=== PATIENT | female | born 1940 ===

== ENCOUNTER → 2023-03-05 10:59 | Outpatient (BNVA) | payer OTHER, SELFPAY | PROVIDERS: PCP Internal Medicine; Visit Provider Psychiatry & Neurology Neurology | DX: F03.90 Unspecified dementia, unspecified severity, without behavioral disturbance, psychotic disturbance, mood disturbance, and anxiety (principal); F05 Delirium due to known physiological condition; R44.3 Hallucinations, unspecified | CPT/HCPCS: 99202 ==

== ENCOUNTER 2023-06-03 10:31 | Outpatient (REF) | payer OTHER, SELFPAY | END 2023-06-03 10:32 | disposition home or self-care (01) | LOC: HO.MRI 10:31 | PROVIDERS: PCP Internal Medicine; Visit Provider Psychiatry & Neurology Neurology | DX: F03.90 Unspecified dementia, unspecified severity, without behavioral disturbance, psychotic disturbance, mood disturbance, and anxiety (principal) | CPT/HCPCS: 70551 ==

== ENCOUNTER 2023-07-08 11:05 | Outpatient (AMB) | payer OTHER, SELFPAY ==
--- NOTE | 2023-07-08 11:13 | MHC.OFFVIS ---
Intake Vital Signs 07/08/23 11:23 Weight 111 lb BP 110/72 Blood Pressure Location Lt brachial Position Sitting Pulse 78 Pulse Source Pulse Oximeter Pulse Oximetry (%) 99 Oxygen Delivery Method Room Air Intake Visit Reasons: 4m follow up Dementia/Confirmed Intake Note: F/U Dementia Print And Pattern Designer Required: Yes Print And Pattern Designer Name: Chapin [id number] Allergies No Known Allergies Allergy (Verified 07/08/23 11:15) HPI HPI Comments History of Present Illness Details 83 y/o female comes for follow up of memory issues. Chapin Ayala ID #[id number] utilized. Pt had a brain MRI done, but it was limited, incomplete study due to claustrophobia. 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 The midline structures are grossly normal. [id number] chronic white matter microangiopathic changes noted with diffuse parenchymal volume loss and concordant ex vacuo dilatation of the ventricles. No mass effect or midline shift is seen. No acute infarct evident. No findings suspicious for hydrocephalus. Mild ethmoid sinus mucosal thickening noted. Pt's daughter reports that patient frequently misplaces things, losses things, forgets what she has eaten, forgets medications etc. She has trouble using microwave, phone etc. Pt is on donepezil 10 mg qHS and memantine 10 mg BID. She stopped ramelteon, it did not help her sleep better, now she takes mirtazapine. It seems helps better. Pt's daughter states that seroquel 25 mg 1/2 tab at 4pm and 1/2 tab at 7 pm reduced hallucination and irritability. [facility] Medical History (Updated 03/05/23 @ 11:57 by Melodie Matt MD) Hallucination Sundowning Dementia Lung nodule Osteoporosis Depression CKD (chronic kidney disease) Diabetic neuropathy Hyperlipemia Diabetes HTN (hypertension) Surgical History Hx of appendectomy Hx of hernia repair Hx of cataract removal with insertion of prosthetic lens Social History (Updated 07/08/23 @ 11:23 by Kym Edmond CMA) Alcohol intake: never Patient Tobacco Use Status: Former Tobacco user Review of Systems Const All systems reviewed & are unremarkable except as noted in HPI and below Neuro Reports confusion Psych Reports confusion Physical Exam Vital Signs: Last Vital Signs Pulse 78 07/08/23 11:23 BP 110/72 07/08/23 11:23 Pulse Ox 99 07/08/23 11:23 Oxygen Delivery Method Room Air 07/08/23 11:23 Const General: cooperative, comfortable, no acute distress and confusion Nutritional Appearance: average body habitus Orientation/consciousness: confusion Eyes Pupils: Equal, round and reactive pupils present Neuro General: tone normal, moves all extremities, no focal motor deficits and confusion Cranial nerves: Yes Facial sensation intact/muscles of mastication intact, Yes Equal, round and reactive pupils present, Yes Bilaterally intact EOM present, Yes Nystagmus not present, Yes Normal facial strength present, Yes Midline tongue present and Yes Symmetric palate elevation present Cognition (Neuro): abnormal cognition Gait exam (Neuro): Antalgic gait present Motor exam (neuro): 5/5 motor strength present throughout and Normal motor muscle tone present throughout Deep tendon reflexes (DTR's): Right triceps reflex intensity grade: 1+, Left triceps reflex intensity grade: 1+, Rt Biceps (C5, C6): 1+, Left biceps reflex intensity grade: 1+, Right patellar reflex intensity grade: 1+ and Left patellar reflex intensity grade: 1+ Coordination: [id number] test normal Assessment & Plan Assessment & Plan (1) Dementia: Comment: Alzheimers vs mixed MMSE limited due to language issues, hearing impairment and her education level ( does not know how to read or write) Code(s): F03.90 - Unspecified dementia, unspecified severity, without behavioral disturbance, psychotic disturbance, mood disturbance, and anxiety (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 Continue to take quetiapine 25 mg 1/2 tab at 4pm and 1/2 tab at 7 pm to manage hallucination and irritability. Coding Level of Care Code Est Pt Level 3 (21527) Diagnoses Dementia F03.90 Sundowning F05 Hallucination R44.3
[2023-07-08 11:23] VITALS: BP 110/72; PULSE 78; O2SAT 99
== END 2023-07-08 11:46 | disposition home or self-care (01) ==
PROVIDERS: PCP Internal Medicine; Visit Provider Nurse Practitioner Family
DX: F03.90 Unspecified dementia, unspecified severity, without behavioral disturbance, psychotic disturbance, mood disturbance, and anxiety (principal); F05 Delirium due to known physiological condition; R44.3 Hallucinations, unspecified
CPT/HCPCS: 99213

== ENCOUNTER → 2023-07-08 11:05 | Outpatient (BNVA) | payer OTHER, SELFPAY | PROVIDERS: PCP Internal Medicine; Visit Provider Nurse Practitioner Family | DX: F03.90 Unspecified dementia, unspecified severity, without behavioral disturbance, psychotic disturbance, mood disturbance, and anxiety (principal); F05 Delirium due to known physiological condition; R44.3 Hallucinations, unspecified | CPT/HCPCS: 99212 ==

== ENCOUNTER 2024-05-19 10:48 | Outpatient (AMB) | payer OTHER, SELFPAY ==
--- NOTE | 2024-05-19 11:22 | A.OFFVIS_ITS ---
Vital Signs 05/19/24 11:26 Height 4 ft 8 in Weight 112 lb BMI 25.1 BP 110/70 Blood Pressure Location Rt brachial Position Sitting Intake Visit Reasons: 6m f/u Dementia - Conf Intake Note: Patient here for follow up Allergies No Known Allergies Allergy (Verified 05/19/24 11:26) Medication List - Last Reconciled 05/19/24 by OCTAVIO Louis acetaminophen 500 mg PO Q6H PRN aspirin 81 mg PO DAILY atorvastatin 10 mg PO DAILY blood sugar diagnostic (FreeStyle Lite Strips) As directed cholecalciferol (vitamin D3) 50 mcg PO DAILY donepezil 10 mg PO BEDTIME 30 days dulaglutide (Trulicity) 0.75 mg subcut QWEEK insulin aspart U-100 (Novolog U-100 Insulin aspart) subcut lisinopril-hydrochlorothiazide 20-12.5 mg 1 tab PO DAILY memantine 10 mg PO BID mirtazapine 7.5 mg PO BEDTIME quetiapine 1/2 tab at 4 pm 1/2 tab at 7 pm orally bedtime; HPI Comments Details: 84-yr-old female presents for f/u visit. Pt denies any significant interval medical changes. Pt herself reports she is doing ok, her primary concern is her knee pain. She states she may forget things. She states she is eating, drinking, and sleeping well. She needs help with her ADLs and IADLs. Her children help her, her dtr DAYANA is her GUSSET STITCHER also. Pt does not try to leave home w/o her children. Her dtr notes that pt does have frequent hallucinations. Talks to the people in the TV and they talk back to her. Sometimes the person in the TV is bothersome to her- she feels they take pictures of her w/o her consent. She also believes she is in a relationship w/ a very famous musician- though is not. [facility] Medical History (Updated 03/05/23 @ 11:57 by Melodie Matt MD) Hallucination Sundowning Dementia Lung nodule Osteoporosis Depression CKD (chronic kidney disease) Diabetic neuropathy Hyperlipemia Diabetes HTN (hypertension) Surgical History Hx of appendectomy Hx of hernia repair Hx of cataract removal with insertion of prosthetic lens Social History (Reviewed 05/19/24 @ 11:26 by CHRISTIANO Quiles Alcohol intake: never Patient Tobacco Use Status: Former Tobacco user Physical Exam Vital Signs: Last Vital Signs BP 110/70 05/19/24 11:26 BMI result Body Mass Index 25.1 Const General: cooperative and no acute distress Orientation/consciousness: oriented to person Resp Effort & Inspection: normal respiratory effort and able to speak in complete sentences Neuro Other: Pt is able to state correctly: Today is Wednesday and we are in hospital clinic. She had 6 children and 1 has passed. Pt is unable to state month, year, floor we are on, city- states this is [place]. She cannot tell me where she lives or her phone number. General: oriented to person Cranial nerves: Yes CN's II-XII intact bilaterally Gait exam (Neuro): Assistive device used (cane) Psych Appearance: grossly normal Speech and movement: Normal speech and movement present Affect: normal affect Attitude: cooperative Assessment & Plan Assessment & Plan (1) Dementia: Comment: Alzheimers vs mixed MMSE limited due to language issues, hearing impairment and her education level ( does not know how to read or write) Code(s): F03.90 - Unspecified dementia, unspecified severity, without behavioral disturbance, psychotic disturbance, mood disturbance, and anxiety Category: Medical (2) Hallucination: Code(s): R44.3 - Hallucinations, unspecified Category: Medical Plan Continue Memantine 10mg bid Continue Donepazil 10mg qd Increase quetiapine from 12.5mg bid to 12.5mg tid and extra 12.5mg per day prn hallucinations. Reviewed possible side effects of quetiapine tx. Continue supportive care- pt may need increased supervision if confusion worse ns. Encouraged pt to engage in regular physical, cognitive, and socially engaging activities. Advised to notify us w/ any worsening hallucinations, behaviors, or s/s infection. Pt to follow-up in 6 months or sooner prn. Medications: Changed From quetiapine 1/2 tab at 4 pm 1/2 tab at 7 pm orally bedtime; 30 tabs 3RF To quetiapine may use 1 extra 1/2 tab per day prn hallucinations. 12.5 mg (1/2 x 25 mg) PO TID 30 days 60 tabs 3RF Coding Level of Care Code Est Pt Level 4 (84470) Diagnoses Dementia F03.90 Hallucination R44.3
[2024-05-19 11:26] VITALS: BP 110/70; BMI 25.1
== END 2024-05-19 12:31 | disposition home or self-care (01) ==
PROVIDERS: PCP Internal Medicine; Visit Provider Nurse Practitioner Family
DX: F03.90 Unspecified dementia, unspecified severity, without behavioral disturbance, psychotic disturbance, mood disturbance, and anxiety (principal); R44.3 Hallucinations, unspecified
CPT/HCPCS: 99214

== ENCOUNTER → 2024-05-19 10:48 | Outpatient (BNVA) | payer OTHER, SELFPAY | PROVIDERS: PCP Internal Medicine; Visit Provider Nurse Practitioner Family | DX: F03.90 Unspecified dementia, unspecified severity, without behavioral disturbance, psychotic disturbance, mood disturbance, and anxiety (principal); R44.3 Hallucinations, unspecified | CPT/HCPCS: 99212 ==

== ENCOUNTER 2024-11-30 11:16 | Outpatient (REF) | payer OTHER, SELFPAY ==
--- OUTSIDE RECORDS SUMMARY | 2024-11-30 13:58 | XMS_ITS | Clinical Summary ---
Author Organization [address] [place] [address] [address] Address [address] [place] [phone] Phone Care Team Providers Care Munitions Handler Supervisor Name Role Phone Yamileth Taveras MD Primary Care Prov ider Allergies [...] Care Team Description 10/31/2024 Telephone Endocrinology - [address] [place] [place] [phone] Lyn Gallo MA Prolia Injection 10/25/2024 12:56 PM EST - 10/25/2024 5:39 PM EST Emergency [facility] [address] [place] [phone] Discharge Disposition: Home or Self Care 10/03/2024 Telephone Endocrinology - [address] [place], [place] [phone] Cristal Tan MA 10/02/2024 10:15 AM EST Office Visit Orthopedic Surgery - [place] [address] [facility] [address] [place] [phone] Dyer, Iwona M, PA Pain in both wrists (Primary Dx); Ganglion of right wrist; Ganglion of left wrist 09/01/2024 Telephone [facility] [place] [address] [place] [phone] Cristal Tan MA from Last [...] History Surgery Date Site/Laterality Comments APPENDECTOMY PROCEDURE: [place] APPENDECTOMY HERNIA REPAIR PROCEDURE: HISTORICAL HERNIA REPAIR/ING [...] ty pe II controlled with renal manifestation ([facility]); COMMENT: 07/11/13: Regadenoson nuclear stress test with anginal symptoms. The stress EKG does exhibit ST changes suggestive of ischemia, with a normotensive response to the infusion. 1. Regadenoson nuclear stress test without evidence of ischemia or infarction. 2. 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 ([facility]/HCC) 11/28/2013 DX:Controlled type 2 diabete s with neuropathy ([facility]); COMMENT: Pain, tingling, numbness in feet CKD (chronic kidney disease) stage 3, GFR 30-59 ml/min (CMS/HCC) 03/21/2013 DX:CKD (chronic kidney dise ase) stage 3, GFR 30-59 ml/min ([facility]); COMMENT: Dr dunbar Chronic back pain 03/07/2013 DX:Chronic hortensia k pain; COMMENT: Chronic t12 compression fracture on ct abdomen Type 2 diabetes mellitus wit h cataract 07/23/2015 DX:Type 2 diabetes mellitus with cataract (HCC); COMMENT: NS/ Cataracts bilateral Diabetic neuropathy ([facility]) 08/18/2015 DX :Diabetic neuropathy ([facility]) DM type 2, uncontrolled, wit h [...] your loved ones. For example, early childhood coordinator or elderly care for an older adult? [...] 12:00 PM EDT Office Visit Adult Medicine [address] [phone] Yamileth Taveras MD [address] [place] [address] 06/25/2025 4:40 PM EDT Office Visit Endocrinology [address] [phone] Nita Davalos PA [address] [place] [address] Health Maintenance Due Date Last Done Comments [...] * Annual BMP Blood Test (05/04/2024) Pathologist [facility] Annual BMP Blood Test ABSTRACTED [facility] Provider HEALTH MAINTENANCE Final Result * (ABNORMAL) Hemoglobin A1c (05/04/2024) [facility] Hemoglobin A1C 8.5(A) <=6.5 % Blood Venous blood specimen / Unknown [facility] Provider LAB BLOOD ORDERABLES Patricia l Result * Diabetes Eye Exam (02/24/2024) [facility] Diabetes: Annual Retina Eye Exam ABSTRACTED Historical Provider HEALTH MAINTENANCE Final Result * (ABNORMAL) Lipid panel (07/14/2023) [facility] LDL/HDL Ratio 4 0 - 4 [...] to have osteoporosis by WHO criteria. The [facility] Department of Internal Medicine recommends using National [...] alternative screening schedule based on chase Fernandez., [facility] September 17, 2011 for patients with osteopenia [...] to have osteoporosis by WHO criteria. The [facility] Department of Internal Medicine recommendsusing National Osteoporosis [...] Group ID:[id number] Type:Not on file Address: [facility] [place] [id number] Care Teams Munitions Handler Supervisor Relationship Specialty Start Date End Date Yamileth Taveras MD [address] [place] [id number] PCP - General Internal Medicine 03/05/22
--- OUTSIDE RECORDS SUMMARY | 2024-11-30 13:58 | XMS_ITS | Clinical Summary ---
Author Organization [facility] Facility Address [address] [address] Care Team Providers Care Jewel Inspector Name Role Phone Unavailable Primary Care Provider [...]
[2024-11-30 17:41] LABS: MANUAL DIFF FLAG NO
[2024-11-30 17:52] LABS: Appearance Urine Cloudy; Color Urine Yellow; Glucose Urine UA Negative (Negative); Leukocyte Esterase Urine Large (3+) (Negative); Nitrite Urine Positive (Negative); PH 5.5 (5.0-9.0); Specific Gravity - Urine 1.015 (1.005-1.025); UMIC TRIGGER UACC YES; Urine Blood Trace (Negative); Urine Ketones Negative (Negative); Urine Protein Negative (Neg-Trace)
[2024-11-30 17:57] LABS: Bacteria Urine 4+ (None Seen); Hyaline Casts Urine 0-2 /LPF (0-2); RBC Urine 0-2 /HPF (0-2); UACC Culture Trigger YES; WBC Urine >50 /HPF (0-5)
[2024-11-30 18:06] LABS: Alanine Aminotransferase 16 U/L (0-31); Albumin Level 4.1 g/dL (3.5-5.0); Alkaline Phosphatase 54 U/L (39-117); Anion Gap 14 (12-20); Aspartate Amino Transferase 22 U/L (5-31); Bilirubin Total 0.3 mg/dL (0.0-1.0); Blood Urea Nitrogen 36 mg/dL (9-16); Calcium 9.7 mg/dL (8.4-10.2); Carbon Dioxide 26 mmol/L (22-29); Chloride 108 mmol/L (96-108); Estimated Glomerular Filt Rate 30; Glucose Random 69 mg/dL (60-115); Potassium 3.8 mmol/L (3.3-5.1); Sodium 144 mmol/L (135-145); Total Protein 7.2 g/dL (6.5-8.0)
[2024-11-30 18:17] LABS: Basophils Percent Auto 0.3 % (0-2); Eosinophils Absolute Auto 0.6 X10*3/uL (0.0-0.4); Eosinophils Percent Auto 7.7 % (0-4); Hematocrit 34.2 % (37.0-47.0); Hemoglobin 11.3 g/dl (12.0-16.0); Imm Gran Abs Auto 0.02 X10*3/uL (0.00-0.03); Imm Gran Pct Auto 0.3 % (0.0-0.4); Mean Corpuscular Hemoglobin 31.9 pg (27.0-33.0); Mean Corpuscular Volume 96.6 fL (80.0-98.0); Mean Platelet Volume 11.3 fL (9.4-12.3); Monocytes Absolute Auto 0.5 X10*3/uL (0.1-1.2); Monocytes Percent Auto 6.6 % (2-11); Neutrophils Absolute Auto 3.2 x10*3/uL (2.0-8.3); Neutrophils Percent Auto 44.1 % (45-73); Platelet Count 180 X10*3/uL (160-400); Red Blood Count 3.54 X10*6/uL (4.20-5.50); White Blood Count 7.3 X10*3/uL (4.8-10.8)
== END 2024-11-30 11:17 | disposition home or self-care (01) ==
LOC: HO.HKASLDS 11:16
PROVIDERS: PCP Internal Medicine; Visit Provider Nurse Practitioner Family
DX: R44.3 Hallucinations, unspecified (principal); N18.9 Chronic kidney disease, unspecified; F03.90 Unspecified dementia, unspecified severity, without behavioral disturbance, psychotic disturbance, mood disturbance, and anxiety; Z79.899 Other long term (current) drug therapy
CPT/HCPCS: 36415; 80053; 81001; 85025; 87086; 87088; 87186; 99212

== ENCOUNTER 2024-11-30 11:16 | Outpatient (AMB) | payer OTHER, SELFPAY ==
--- NOTE | 2024-11-30 11:25 | MHC.OFFVIS ---
Vital Signs 11/30/24 11:29 Height 4 ft 8 in Weight 108 lb 8 oz BMI 24.3 BP 110/64 Blood Pressure Location Rt brachial Position Sitting Intake Visit Reasons: 6 mnts f/u for Dementia Intake Note: Patient presents follow up Dementia medication Insole Bottom Filler Required: Yes Insole Bottom Filler Services: Insole Bottom Filler Present Insole Bottom Filler Name: kwame daly Allergies No Known Allergies Allergy (Verified 11/30/24 11:30) Medication List - Last Reconciled 11/30/24 by OCTAVIO Louis acetaminophen 500 mg PO Q6H PRN aspirin 81 mg PO DAILY atorvastatin 10 mg PO DAILY blood sugar diagnostic (FreeStyle Lite Strips) As directed cholecalciferol (vitamin D3) 50 mcg PO DAILY donepezil 10 mg PO BEDTIME 30 days dulaglutide (Trulicity) 0.75 mg subcut QWEEK insulin aspart U-100 (Novolog U-100 Insulin aspart) subcut lisinopril-hydrochlorothiazide 20-12.5 mg 1 tab PO DAILY memantine 10 mg PO BID mirtazapine 7.5 mg PO BEDTIME quetiapine 12.5 mg (1/2 x 25 mg) PO TID 30 days HPI Comments Details: 84-yr-old female presents for f/u visit for dementia, hallucinations. Patient is accompanied by her daughter. Pt denies any significant interval medical changes. Prior to visit, daughter spoke with provider to express concern about worsening hallucinations. Patient has called her to come over to see a bothersome pig valve is in her house, but the pig disappears when the daughter arrived. He just does: She also called the police recently as she thought, was in the house, however nobody was there. Pt herself reports she is doing ok. Patient denies recent fever, abdominal pain, change in chronic back pain, dysuria, odorous urine. She states she may forget things. She states she is eating, drinking, and sleeping well. She needs help with her ADLs and IADLs. She does wear incontinence protection. She does continue to live alone. Her children help her, her dtr DAYANA is her VOICE DATA COMMUNICATIONS ENGINEER also. Pt does not try to leave home w/o her children. Previously daughter had described hallucinations as: Talks to the people in the TV and they talk back to her. Sometimes the person in the TV is bothersome to her- she feels they take pictures of her w/o her consent. She also believes she is in a relationship w/ a very famous musician- though is not. [facility] Medical History Hallucination Sundowning Dementia Lung nodule Osteoporosis Depression CKD (chronic kidney disease) Diabetic neuropathy Hyperlipemia Diabetes HTN (hypertension) Surgical History Hx of appendectomy Hx of hernia repair Hx of cataract removal with insertion of prosthetic lens Social History Alcohol intake: never Patient Tobacco Use Status: Former Tobacco user Physical Exam Vital Signs: Last Vital Signs BP 110/64 11/30/24 11:29 BMI result Body Mass Index 24.3 Const General: cooperative and no acute distress Orientation/consciousness: oriented to person Resp Effort & Inspection: normal respiratory effort and able to speak in complete sentences Neuro Other: Alert when short-term memory loss, impaired insight. General: oriented to person Cranial nerves: Yes CN's II-XII intact bilaterally Gait exam (Neuro): Assistive device used (cane) Psych Appearance: grossly normal Speech and movement: Normal speech and movement present Affect: normal affect Attitude: cooperative Assessment & Plan Assessment & Plan (1) Hallucination: Code(s): R44.3 - Hallucinations, unspecified Category: Medical (2) Dementia: Comment: Alzheimers vs mixed MMSE limited due to language issues, hearing impairment and her education level ( does not know how to read or write) Code(s): F03.90 - Unspecified dementia, unspecified severity, without behavioral disturbance, psychotic disturbance, mood disturbance, and anxiety Category: Medical Plan Discussed with patient and daughter that due to worsening of hallucinations, which are now consistent with delusions, and these bothersome to patient and patient is acting/responding/calling the police and response to these hallucinations/delusions, I am advising that patient have 24/7 supervision- and would benefit from a shared living situation- either somebody living with patient or patient living somebody else/family. Daughter asks for a letter stating this. Check CBC, CMP way CS today. Continue Memantine 10mg bid Continue Donepazil 10mg qd Increase quetiapine from 12.5mg tid to 4.5 mg b.i.d. and 25 mg q.h.s.. Continue quetiapine extra 12.5mg per day prn hallucinations. Reviewed possible side effects of quetiapine tx. Encouraged pt to engage in regular physical, cognitive, and socially engaging activities. Advised to notify us w/ any worsening hallucinations, behaviors, or s/s infection. Pt to follow-up in 6 months or sooner prn. Orders: Orders Complete Blood Count Auto Diff Today N18.9 - Chronic kidney disease, unspecified, R44.3 - Hallucinations, unspecified Comprehensive Met. Panel Today N18.9 - Chronic kidney disease, unspecified, R44.3 - Hallucinations, unspecified UA CC w/rflx Micro + Cult Today N18.9 - Chronic kidney disease, unspecified, R44.3 - Hallucinations, unspecified Medications: Changed From quetiapine may use 1 extra 1/2 tab per day prn hallucinations. 12.5 mg (1/2 x 25 mg) PO TID 30 days 60 tabs 3RF R44.3 - Hallucinations, unspecified To quetiapine 12.5mg bid and 25mg qhs orally 3 times a day; may use 1 extra 1/2 tab per day prn hallucinations. 30 days 75 tabs 3RF R44.3 - Hallucinations, unspecified Coding Level of Care Code Est Pt Level 4 (07830) Complex EM visit Add On G2211 Diagnoses Hallucination R44.3 Dementia F03.90
[2024-11-30 11:29] VITALS: BP 110/64; BMI 24.3
--- OUTSIDE RECORDS SUMMARY | 2024-11-30 12:35 | XMS_ITS | Clinical Summary ---
Author Organization [address] [place] [address] [address] [place] [phone] Phone Care Team Providers Care It [employer] Specialist Name Role Phone Yamilteh Taveras MD Primary Care Prov ider Allergies No known active allergies Medications FREESTYLE LANCETS MISC USE THREE TIMES DAILY TO CHECK BLOOD SUGAR 4 Active cholecalciferol (VITAMIN D-3) 50 mcg (2,000 unit) capsule Take 1 capsule (2,000 Units total) by mouth 1 (one) time each day. 4 Active aspirin 81 mg EC tablet Take 1 tablet (81 mg total) by mouth 1 (one) time each day. 3 Active mirtazapine (REMERON) 15 mg tablet Take 1 tablet (15 mg total) by mouth. Active lancets lancets To check sugars three times a day E11.9 4 Active insulin syringe-needle U-100 1 mL 31 gauge x 5/16 syringe Inject 1 each under the skin 4 (four) times a day. Use with Insulin 4 times daily as instructed. Active donepeziL (ARICEPT) 10 mg tablet Take 1 tablet (10 mg total) by mouth at bedtime. at bedtime. 4 Active memantine (NAMENDA) 10 mg tablet Take 1 tablet (10 mg total) by mouth 2 (two) times a day. Active QUEtiapine (SEROquel) 25 mg tablet Take 1 tablet (25 mg total) by mouth 2 (two) times a day. 4 Active ramelteon (ROZEREM) 8 mg tablet Take 1 tablet (8 mg total) by mouth at bedtime. Active insulin aspart (NovoLOG U-100 Insulin aspart) 100 unit/mL injection INJECT UNDER THE SKIN 3 TIMES A DAY BEFORE MEALS. FOLLOW SLIDING SCALE 71-100: 4U, 101-150: 6U, 150-200: 8U, 201-250 10U, 251-300: 12U, 301-350: 14U. 4 Active dulaglutide (Trulicity) 4.5 mg/0.5 mL pen injector injection Inject 0.5 mL (4.5 mg total) under the skin 1 (one) time per week. 2 mL 3 4 Active denosumab (Prolia) 60 mg/mL syringe syringeIndicatio ns:Osteoporosis, unspecified osteoporosis type, unspecified pathological fracture presence Inject 1 mL (60 mg total) under the skin 1 (one) time for 1 dose. 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 Use with Insulin 4 times daily as directed. 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 90 tablet 1 Active Active Problems Problem Noted Date Diagnosed Date Pain in both wrists 10/02/2024 Ganglion of right wrist 10/02/2024 Ganglion of left wrist 10/02/2024 Osteoporosis 11/03/2019 Pseudophakia 03/25/2017 Diabetic neuropathy 08/18/2015 Lung nodule 02/06/2014 Overview (11/03/2023): 02/11-stable lung nodules. 02/10-2 nodules of the right lung as described. If this is a low risk patient (nonsmoker, normal immune function, and no history of malignancy), then no further followup would be required. However, if this is a high-risk patient, then followup chest CT in one year would be suggested. Type 2 diabetes mellitus with nephropathy 2013 Overview (11/03/2023): Pain, tingling, numbness in feet Assessment & Plan (07/14/2024 4:41 PM EST): Poor control of diabetes. Last A1c: 8.5. Patient will continue with yearly Podiatric and Ophthomologic evaluations.Will continue Angiotensin Converting Enzyme Inhibitor for renal protection. Continue Trulicity to 4.5 mg every week, as prescribed by Endo, recommended to decrease the dose of Glargine to 40 units as she has been presenting hypoglycemia episodes. She is encouraged to follow a low-carb diet. We will check a hemoglobin A1C before her next visit. Patient will follow up in 3 months. Orders: Hemoglobin A1c; Future Basic metabolic panel; Future CKD (chronic kidney disease) stage 3, GFR 30-59 ml/min 03/21/2013 Overview (11/03/2023): Dr Kent Assessment & Plan (07/14/2024 4:41 PM EST): last GFR 27. Recommeded to avoid nephrotoxics, DM and HTN follow up. Will see Dr. Kent in August. HTN (hypertension) 03/07/2013 Assessment & Plan (07/14/2024 4:41 PM EST): The patient's antihypertensive regimen is based on their underlying medical issues. At the time of this visit, the blood pressure is well controlled on hydrochlorothiazide/lisinopril,. The patient is instructed to follow a low sodium diet and to follow up in 3 months. Orders: Hemoglobin A1c; Future Basic metabolic panel; Future Diabetes 03/07/2013 Hyperlipidemia 03/07/2013 Assessment & Plan (07/14/2024 4:41 PM EST): Given the patients cardiac risk profile, the patient requires an LDL cholesterol of less than 70. I have instructed the patient on the principles of a low cholesterol diet and the importance of regular exercise. Orders: Hemoglobin A1c; Future Basic metabolic panel; Future Chronic back pain 03/07/2013 Overview (11/03/2023): Chronic t12 compression fracture on ct abdomen Depression 03/07/2013 Overview (11/03/2023): F/u sunrise Memory deficits 03/07/2013 Encounters Date Type Department Care Team Description 10/31/2024 Telephone Endocrinology - [place] [id number] [place] [phone] Lyn Gallo MA Prolia Injection 10/25/2024 12:56 PM EST - 10/25/2024 5:39 PM EST Emergency [facility] Emergency [address] [place] [phone] Discharge Disposition: Home or Self Care 10/03/2024 Telephone Endocrinology - [place] [id number] [place], [place] [phone] Cristal Tan MA 10/02/2024 10:15 AM EST Office Visit Orthopedic Surgery - [place] [address] [facility] [address] [place] [phone] Dyer, Iwona M, PA Pain in both wrists (Primary Dx); Ganglion of right wrist; Ganglion of left wrist 09/01/2024 Telephone [facility] [place] [address] [place] [phone] Cristal Tan MA from Last 3 Months Immunizations Name Administration Dates Next Due Influenza Quadravalent, MDCK , 0.5ml, preservative free (Flucelvax) 6mo and older 08/18/2018 Influenza trivalent, 0.5mL ( Fluzone High-dose) 65yo and older 06/10/2023,04/07/2022,05/13/2020,05/22,06/07/2017,07/09/2016,05/23/2015 ,06/20/2014,05/31/2013 Influenza trivalent, 0.5mL, preservative free (Fluarix; FluLaval; Fluzone) ages 6mo and older (Afluria) 3 years and older 05/13/2020 Influenza trivalent, with pr eservative (Fluzone; Afluria) 6mo and older 07/14/2016,05/31/2013 Influenza, Unspecified 05/29/2022 Pneumococcal conjugate 13 va lent (Prevnar 13, PCV13) 2mo and older 09/17/2015 Pneumococcal polysaccharide 23 valent (Pneumovax 23) 2yo and older 04/26/2014 Tdap Tetanus diptheria acell ular pertussis (Boostrix; Adacel) 7yo and older 11/06/2014 Surgical History Surgery Date Site/Laterality Comments APPENDECTOMY PROCEDURE: UT APPENDECTOMY HERNIA REPAIR PROCEDURE: HISTORICAL HERNIA REPAIR/ING CATARACT EXTRACTION PROCEDURE: HISTORICAL CATARACT REMOVAL Medical History Medical History Date Comments 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 02/10-2 nodules of the right lung as described. If this is a low risk patient (nonsmoker, normal immune function, and no history of malignancy), then no further followup would be required. However, if this is a high-risk patient, then followup chest CT in one year would be suggested. Hyperlipidemia 03/07/2013 DX:Hyperlipidemi a HTN (hypertension) 03/07/2013 DX:HTN (hyper tension) DM (diabetes mellitus) type II controlled with renal manifestation (CMS/HCC) 03/07/2013 DX:DM (diabetes mellitus) ty pe II controlled with renal manifestation ([facility]); COMMENT: 07/11/13: Regadenoson nuclear stress test with anginal symptoms. The stress EKG does exhibit ST changes suggestive of ischemia, with a normotensive response to the infusion. 1. Regadenoson nuclear stress test without evidence of ischemia or infarction. 2. 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 ([facility]/HCC) 11/28/2013 DX:Controlled type 2 diabete s with neuropathy ([facility]); COMMENT: Pain, tingling, numbness in feet CKD (chronic kidney disease) stage 3, GFR 30-59 ml/min (CMS/HCC) 03/21/2013 DX:CKD (chronic kidney dise ase) stage 3, GFR 30-59 ml/min ([facility]); COMMENT: Dr dunbar Chronic back pain 03/07/2013 DX:Chronic hortensia k pain; COMMENT: Chronic t12 compression fracture on ct abdomen Type 2 diabetes mellitus wit h cataract 07/23/2015 DX:Type 2 diabetes mellitus with cataract (HCC); COMMENT: NS/ Cataracts bilateral Diabetic neuropathy ([facility]) 08/18/2015 DX :Diabetic neuropathy ([facility]) DM type 2, uncontrolled, wit h renal complications 03/07/2013 DX:DM type 2, uncontrolled, with renal complications Uncontrolled type 2 diabetes with neuropathy 11/28/2013 DX:Uncontrolled type 2 diabe monika with neuropathy; COMMENT: Pain, tingling, numbness in feet Actinic keratosis, hx of DX:Acti maritza keratosis, hx of Family History Medical History Relation Name Comments No Known Problems Aunt No Known Problems Brother No Known Problems Father No Known Problems Maternal Grandfather No Known Problems Maternal Grandmother No Known Problems Mother Cataracts Other daughter No Known Problems Paternal Grandfather No Known Problems Paternal Grandmother No Known Problems Sister Cataracts Uncle daughter Blindness Neg Hx Glaucoma Neg Hx Macular degeneration Neg Hx Strabismus Neg Hx Relation Name Status Comments Aunt Brother Father not sure why Maternal Grandfather Maternal Grandmother Mother Other Paternal Grandfather Paternal Grandmother Sister Uncle Social History Tobacco Use Types Packs/Day Years Used Date Smoking Tobacco: Former Smokeless Tobacco: Never Tobacco Cessation:Counseling Given: Not Answered Alcohol Use Standard Drinks/Week Comments No 0 (1 standard drink = 0.6 oz pur e alcohol) Housing Instability Answer Date Recorde d Are you worried that in the next 2 months you may not have stable housing? No 07/13/2024 Food Access & Nutrition Answer Date Rec orded Do you have access to a vari ety of food including fruits and vegetables? No 07/13/2024 Access to Healthcare Answer Date Record ed Within the last 3 months, ho w many times did you visit the emergency department for your medical care? 0 07/13/2024 Health Literacy Answer Date Recorded How often do you need to hav e someone help you when you read instructions, pamphlets, or other written material from your doctor or pharmacy? Sometimes 07/13/2024 Caregiver: How often do you need to have someone help you when you read instructions, pamphlets, or other written material from your doctor or pharmacy? Not on file 07/13/2024 Financial Risk Answer Date Recorded How hard is it for you to pa y for the very basics like food, housing, medical care, and air conditioning / heating? Not very hard 07/13/2024 Transportation Answer Date Recorded Has the lack of transportati on kept you from meetings, work, or from getting things needed for daily living? No Has the lack of transportati on kept you from medical appointments or from getting medications? No 07/13/2024 Social Isolation Answer Date Recorded How often do you feel lonely or isolated from th ose around you? Often 07/13/2024 Food Risk Answer Date Recorded Within the past 12 months we worried whether our food would run out before we got money to buy more. Never true 07/13/2024 Within the past 12 months th e food we bought just didn't last and we didn't have money to get more. Never true 07/13/2024 Dependent Care Answer Date Recorded Do you need help finding or paying for care for your loved ones. For example, early childhood teacher assistant or elderly care for an older adult? No 07/13/2024 Education Answer Date Recorded Do you think completing more education or training, like finishing a GED, going to college, or learning a trade, would be helpful for you? No 07/13/2024 Living Situation Answer Date Recorded What is your living situation? 1 09/12/2023 Comments No Sex and Gender Information Value Date Recorded Sex Assigned at Not on file Legal Sex Female 8:16 PM EST Gender Identity Not on file Sexual Orientation Not on file Obstetrics History Last Filed Vital Signs Vital Sign Reading Time Taken Comments Blood Pressure 139/73 10/25/2024 1:42 PM EST Pulse 103 10/25/2024 1:42 PM EST Temperature 36.7 ??C (98 ??F) 10/25/2024 1:42 PM EST Respiratory Rate 18 10/25/2024 1:42 PM EST Oxygen Saturation 99% 10/25/2024 1:42 PM EST Inhaled Oxygen Concentration - - Weight 47 kg (103 lb 9.6 oz) 08/25/2024 11:35 AM EST Height 134.6 cm (4' 5 ) 08/25/2024 11:35 AM EST Body Mass Index 25.93 08/25/2024 11:35 AM EST Plan of Treatment Upcoming Encounters Date Type Department Care Team (Late st Contact Info) Description 12/28/2024 12:00 PM EDT Office Visit Adult Medicine [address] [phone] Yamileth Taveras MD [address] [place] [address] 06/25/2025 4:40 PM EDT Office Visit Endocrinology [address] [phone] Nita Davalos PA [address] [place] [address] Health Maintenance Due Date Last Done Comments Diabetes: Annual Foot Exam 1950 Zoster Vaccines (1 of 2) 1992 RSV Immunization Adult Patients (1 - 1-dose 75+ series) 2017 Diabetes: Annual Urine Albumin-Creatinine Ratio (uACR) 01/15/2024 01/14/2023 Diabetes: Blood Sugar Control Test (HGBA1C) 11/01/2024 05/04/2024, 05/04/2024, 12/29/2023 DTaP,Tdap,and Td Vaccines (2 - Td or Tdap) 11/06/2024 11/06/2014 Diabetes: Annual Retina Eye Exam 02/23/2025 02/24/2024 Diabetes: Annual GFR (Glomerular Filtration Rate) 05/04/2025 05/04/2024, 05/04/2024, 12/29/2023 Hypertension/CHF/CAD Annual BMP Blood Test 05/04/2025 05/04/2024, 05/04/2024, 12/29/2023 Depression Screening 07/13/2025 07/13/2024 Falls Risk Assessment 07/13/2025 07/13/2024 Medicare Annual Wellness Visit 07/13/2025 07/13/2024 Social Influencers of Health Screening 07/13/2025 07/13/2024 Cholesterol Screening (Lipid Panel) 07/14/2028 07/14/2023 Osteoporosis Screening (Bone Density Screening) 09/17/2032 09/17/2022, 11/02/2019 Pneumococcal Vaccine: 50+ Years Completed 09/17/2015, 04/26/2014 Influenza Vaccine Completed 05/16/2024, , 05/29/2022, Additional history exists COVID-19 Vaccine Discontinued HIB Vaccines Aged Out No longer eligi ble based on patient's age to complete this topic HPV Vaccines Aged Out No longer eligi ble based on patient's age to complete this topic Hepatitis A Vaccines Aged Out No long er eligible based on patient's age to complete this topic Hepatitis B Vaccines Aged Out No long er eligible based on patient's age to complete this topic IPV Vaccines Aged Out No longer eligi ble based on patient's age to complete this topic MMR Vaccines Aged Out No longer eligi ble based on patient's age to complete this topic Meningococcal ACWY Vaccine Aged Out N o longer eligible based on patient's age to complete this topic Meningococcal B Vacine Aged Out No lo nger eligible based on patient's age to complete this topic RSV Immunization Patients Under 20 months Aged Out No longer eligible based on patient's age to complete this topic Varicella Vaccines Aged Out No longer eligible based on patient's age to complete this topic Procedures Procedure Name Priority Date/Time Associated Diagnosis Comments ANNUAL BMP BLOOD TEST Routine 05/04/2024 HEMOGLOBIN A1C Routine 05/04/2024 DIABETES EYE EXAM Routine 02/24/2024 LIPID PANEL Routine 07/14/2023 URINE ALBUMIN CREATININE RATIO Routine 01/14/2023 DXA BONE DENSITY STUDY 1+ SITS AXIAL SKEL Routine 09/17/2022 11:31 AM EST Encounter for screening for osteoporosis from Last 3 Months or Most Recently Relevant to Health Maintenance Results * Annual BMP Blood Test (05/04/2024) Pathologist [facility] Annual BMP Blood Test ABSTRACTED [facility] Provider HEALTH MAINTENANCE Final Result * (ABNORMAL) Hemoglobin A1c (05/04/2024) [facility] Hemoglobin A1C 8.5(A) <=6.5 % Blood Venous blood specimen / Unknown [facility] Provider LAB BLOOD ORDERABLES Patricia l Result * Diabetes Eye Exam (02/24/2024) [facility] Diabetes: Annual Retina Eye Exam ABSTRACTED Historical Provider HEALTH MAINTENANCE Final Result * (ABNORMAL) Lipid panel (07/14/2023) [facility] LDL/HDL Ratio 4 0 - 4 Triglycerides 129 0 - 150 mg/dL Cholesterol 237(A) 0 - 200 mg/dL HDL 57 >=40 mg/dL LDL Cholesterol 155(A) 0 - 100 mg/dL Blood Venous blood specimen / Unknown us Historical Provider LAB BLOOD ORDERABLES Patricia l Result * Urine Albumin Creatinine Ratio (01/14/2023) Urine Albumin Creatinine Ratio ABSTRACTED us Historical Provider HEALTH MAINTENANCE Final Result * DXA BONE DENSITY STUDY 1+ SITS AXIAL SKEL (09/17/2022 11:31 AM EST) Anatomical Region Laterality Modality Bone Densitometr y 08/27/2022 12:2 3 PM EST Narrative 09/17/2022 12:57 PM EST BONE DENSITY (DEXA) ? Lumbar Spine T-score is -3.4. ?? (SD relative to 20-29 y/o adult) Z-score is -0.7. ??(SD relative to age matched peers) This is considered osteoporosis by WHO criteria. Left Hip T-score is -3.7. Z-score is -1.3. This is considered osteoporosis by WHO criteria. IMPRESSION: This patient is considered to have osteoporosis by WHO criteria. [facility] Department of Internal Medicine recommends using National Osteoporosis Foundation (NOF) guidelines in treatment decisions related to osteoporosis. NOF guidelines suggest considering treatment for postmenopausal women and men aged 50 or older presenting with the following: History of hip or vertebral fracture. T-score = -2.5 (DXA) at the femoral neck, total hip, or spine, after appropriate evaluation to exclude secondary causes. Low bone mass (T-score between -1.0 and -2.5 at the femoral neck or spine) AND a 10-year probability of a hip fracture = 3% OR a 10-year probability of a major osteoporosis-related fracture = 20% based on the [place]-adapted WHO algorithm Please note that all treatment decisions require clinical judgment and consideration of individual patient factors, including patient preferences, co-morbidities, previous drug use, risk factors not captured in the FRAX model (e.g., frailty, falls, vitamin D deficiency, increased bone turnover, interval significant decline in bone density) and possible under- or over-estimation of fracture risk by FRAX. Optional alternative screening schedule based on chase Fernandez., [facility] September 17, 2011 for patients with osteopenia (based on hip BMD T-score) is as follows: * ??advanced osteopenia (T scores -2.00 to -2.49), BMD testing every year * ??moderate osteopenia (T scores -1.50 to -1.99), BMD testing every 5 years mild osteopenia or normal BMD (T scores -1.50 and higher), BMD testing every 15 years Procedure Note Alicia Arredondo MD - 10/05/2023 BONE DENSITY (DEXA) Lumbar Spine T-score is -3.4. (SD relative to 20-29 y/o adult) Z-score is -0.7. (SD relative to age matched peers) This is considered osteoporosis by WHO criteria. Left Hip T-score is -3.7. Z-score is -1.3. This is considered osteoporosis by WHO criteria. IMPRESSION: This patient is considered to have osteoporosis by WHO criteria. [facility] Department of Internal Medicine recommendsusing National Osteoporosis Foundation (NOF) guidelines in treatment decisions related toosteoporosis. NOF guidelines suggest considering treatment for postmenopausal women and menaged 50 or older presenting with the following: History of hip or vertebral fracture. T-score = -2.5 (DXA) at the femoral neck, total hip, or spine, afterappropriate evaluation to exclude secondary causes. Low bone mass (T-score between -1.0 and -2.5 at the femoral neck or spine)AND a 10-year probability of a hip fracture = 3% OR a 10-year probability of a majorosteoporosis-related fracture = 20% based on the [place]-adapted WHO algorithm Please note that all treatment decisions require clinical judgment andconsideration of individual patient factors, including patient preferences, co- morbidities,previous drug use, risk factors not captured in the FRAX model (e.g., frailty, falls, vitaminD deficiency, increased bone turnover, interval significant decline in bone density) andpossible under- or over-estimation of fracture risk by FRAX. Optional alternative screening schedule based on chase Fernandez., NEJMJanuary 2011 for patients with osteopenia (based on hip BMD T-score) is as follows: * advanced osteopenia (T scores -2.00 to -2.49), BMD testing every year * moderate osteopenia (T scores -1.50 to -1.99), BMD testing every 5years mild osteopenia or normal BMD (T scores -1.50 and higher), BMD testingevery 15 years Yamileth Taveras MD IMG DXA PROCEDURES Final Result from Last 3 Months or Most Recently Relevant to Health Maintenance Insurance [employer] MEDICARE Member Subscriber Plan / Payer (Ef fective 2013-Present) Name:Danisha Guerrero Relation to Subscriber:Self Name:Danisha Guerrero Payer ID:[id number] Group ID:[id number] Type:Not on file Address: [address] [facility] [place] [id number] Care Teams It Communications Specialist Relationship Specialty Start Date End Date Yamileth Taveras MD [address] [place] [id number] PCP - General Internal Medicine 03/05/22
--- OUTSIDE RECORDS SUMMARY | 2024-11-30 12:35 | XMS_ITS | Data Portability ---
Author Organization [facility], [place] - [facility] Address [address] [place] [phone] Care Team Providers Care Ballast Inspector Name Role Phone HIM CCA OTHER Assessment Encounter Date Assessment Date Assessment LastModified by Organization Details LastModified Time 10/20/2024 10/20/2024 I have reviewed and agree with the assessment and plan as documented by the human resources intern. I provided real-time medical direction for this encounter and was immediately available to provide additional phone-based assistance as needed. History as noted in EMR and by human resources intern. I would add / emphasize: Patient seen for chronic left knee pain for 1 year no acute changes in symptoms. AVSS afebrile and well-appearing . No trauma no other complaints. Per human resources intern no acute erythema crepitus or deformity to the knee. Reviewed management of arthritis with her family including analgesia with Tylenol as needed. Red flags discussed that should prompt further evaluation. Patient to follow-up with primary team. pallfather Not available 10/21/2024 08:56:40 Plan of Treatment Reminders Order Date Submit Date Provider Last Modified By Organization Details Last Modified Time Details Appointments None recorded. Lab rapid SARS CoV 2 Ag, QL IA, respiratory specimen 2022 023 [facility], [address] [place] [address], [id number] 3 17:11:23 rapid flu (A+B) [address], [id number] 3 17:11:45 Referral None recorded. Procedures None recorded. Surgeries None recorded. Imaging None recorded. Medication Orders benzonatate 100 mg capsule 2022 023 [id number], [address] [place], [place], [phone], 3 13:01:49 Patient TargetsNo targets recorded. Patient InstructionsNo instructions recorded. Reason for Referral None Reported. Results Created Date Observation Date Name Description Value Unit Range Abnormal Flag Note LastModifiedBy Organization Detail LastModifiedTime Result Notes None recorded. Medical Equipment None Reported. Allergies No known drug allergies Medications Name Sig Start Date Stop Date Status Note LastModified by Organization Details LastModified Time atorvastatin 10 mg tablet TAKE 1 TABLET BY MOUTH DAILY active Not Available Not Available Not Available cefpodoxime 200 mg tablet TAKE 1 TABLET BY MOUTH TWICE DAILY active Not Available Not Available No t Available lisinopril 20 mg-hydrochlo rothiazide 12.5 mg tablet TAKE 1 TABLET BY MOUTH DAILY active Not Available Not Available Not Available Lantus U-100 Insulin 100 unit/mL subcutaneous solution ADMINISTER 34 UNITS UNDER THE SKIN EVERY NIGHT AT BEDTIME active Not Available Not Available No t Available aspirin 81 mg tablet,delay ed release TAKE 1 TABLET BY MOUTH DAILY active Not Available Not Available Not Available acetaminophe n 500 mg tablet TAKE 1 TABLET BY MOUTH EVERY 6 HOURS active Not Available Not Available No t Available OneTouch Ultra Test strips USE TO CHECK BLOOD SUGAR 3 TIMES A DAY DIRECTED active Not Available Not Available Not Available benzonatate 100 mg capsule TAKE 1 CAPSULE BY MOUTH THREE TIMES DAILY FOR 7 DAYS active Not Available Not Available N ot Available insulin syringe U-100 with needle 1 mL 31 gauge x 5/16 USE DIRECTED FOUR TIMES DAILY TO INJECT INSULIN active Not Available Not Available No t Available Novolog U-100 Insulin aspart 100 unit/mL subcutaneous solution active Not Available Not Available Not Available amoxicillin 875 mg-potassium clavulanate 125 mg tablet TAKE 1 TABLET BY MOUTH TWICE DAILY FOR 7 DAYS active Not Available Not Available No t Available memantine 10 mg tablet TAKE 1 TABLET BY MOUTH TWICE DAILY active Not Available Not Available No t Available mirtazapine 7.5 mg tablet TAKE 1 TABLET BY MOUTH AT BEDTIME active Not Available Not Available No t Available ramelteon 8 mg tablet TAKE 1 TABLET BY MOUTH AT BEDTIME active Not Available Not Available No t Available cholecalcife rol (vitamin D3) 50 mcg (2,000 unit) capsule TAKE ONE CAPSULE BY MOUTH DAILY active Not Available Not Available Not Available Prolia 60 mg/mL subcutaneous syringe active Not Available Not Available Not Available OneTouch Ultra2 Meter USE DIRECTED active Not Available Not Available No t Available Trulicity 3 mg/0.5 mL subcutaneous pen injector ADMINISTER 3 MG UNDER THE SKIN 1 TIME A WEEK active Not Available Not Available Not Available Trulicity 4.5 mg/0.5 mL subcutaneous pen injector ADMINISTER 4.5 MG UNDER THE SKIN 1 TIME A WEEK active Not Available Not Available No t Available Vitals Date Recorded Oxygen saturation Oxygen saturation in Arterial blood by Pulse oximetry Heart rate Body temperature Respiratory rate Systolic blood pressure Diastolic blood pressure Provider Name and Address Organization Details Last Updated DateTime 3 98 % 98 % 76 /min 98.9 [degF] 14 /min 112 mm[Hg] 76 mm[Hg] Not Available [employer] 3 13:00:16 Date Recorded Oxygen saturation Oxygen saturation in Arterial blood by Pulse oximetry Body height Body temperature Respiratory rate Body weight Heart rate Systolic blood pressure Diastolic blood pressure Provider Name and Address Organization Details Last Updated DateTime 5 98 % 98 % 162.56 cm 98.6 [degF] 18 /min 42856.8 g 88 /min 176 mm[Hg] 89 mm[Hg] Not Available [employer] 5 17:46:16 Social History None recorded. Functional Status None recorded. Mental Status None recorded. Family History Nothing Reported. Medical History No medical history recorded. Gynecological HistoryNo gynecological history recorded. Obstetrics History GPAL:G 0 P 0 0 0 0 Past Encounters Encounter ID Performer Location Encounter Start Date Encounter Closed Date Diagnosis/Indication Diagnosis SNOMED-CT Code Diagnosis ICD10 Code Diagnosis Note [id number] Miller Galvez MD [facility] [address] [place] [phone] 08/19/2023 13:00:01 08/21/2023 17:05:46 Viral upper respiratory tract infection 707737058 J06.9 Flu/COVID negative. Vitals stable with baseline O2 sats. No strep symptoms. Continue supportive care. Discussed red flag signs for which to seek higher level of care. [id number] Mario Ceron MD [facility] - [facility] [address] [place] [phone] 10/20/2024 17:46:13 10/21/2024 09:26:42 Pain of left knee joint 8105624565 26953 M25.562 Health Concerns Section Related Observation LastModified by Organization Detai ls LastModified Time None Recorded Concern Status LastModified by Organization Details LastModified Time None Recorded Advance Directives Directive None Recorded Payers Encounter Date Sequence Insurance Name Policy Number Policy Riddle Covered Member ID Riddle Member ID Guarantor Name 08/19/2023 1 [facility] - DOS ON OR AFTER 2022 - DUAL ELIGIBLE - CORRECTION OPTIONS AND ONE CARE (MEDICARE REPLACEMENT/ADV ANTAGE - HMO) Danisha Guerrero [id number] Danisha Guerrero 10/20/2024 1 [facility] - DOS ON OR AFTER 2022 - DUAL ELIGIBLE - CORRECTION OPTIONS AND ONE CARE (MEDICARE REPLACEMENT/ADV ANTAGE - HMO) Danisha Guerrero [id number] Danisha Irwinrry Notes Date Note Type Note Provider Name and Address Organization Details Recorded Time 08/19/2023 text/html HPI: er's daughter calling [facility], states member has cough, fatigue, and chills. Onset of sx's yesterday. Member is requesting home visit for COVID testing. ................... ................... ................... ................... ................... ................... ................... ........ CRC Nurse Triage Notes (Latha Eckert): Comments: CRC RN DID NOT NEED FURTHER INFO ................... ................... ................... ................... ................... ................... ................... ........ Process Pumper Note From Joe Desir: Encountered patient conscious, alert and ambulatory with family present. Family reports: Patient has had a nonproductive cough for the last three days and would like to rule out any Covid or flu. Patient denies any difficulty in breathing exhibits free and easy work of breathing. Patient exhibits steady gait unassisted. Patient states she has suffered Covid once and was significantly weaker than she is right now. Patient states she feels she may have a chest cold, but would also like to rule out Covid and flu. Covid and flu swab performed, both negative as noted. [facility] contacted, advised of test results. [facility] to write prescription to patient? s pharmacy of choice. Red flags discussed with patient family. Both parties advised to reach out for further medical attention should patient become further symptomatic. Skin warm, dry and appropriate color for ethnicity. Head and neck, free of trauma and edema. ? JVD. Breath sounds present clear and equal in all pichardo. Patient denies any difficulty breathing at this time or upon exertion. Abdomen soft, nontender nondistended. Extremity free of trauma and edema. ................... ................... ................... ................... ................... ................... ................... ........ Disposition: Fulfilled Miller Galvez MD [address] [facility],[address], [place], [phone], [employer] 08/19/2023 16:18:13 10/20/2024 text/html CRC Nurse Triage Notes (Zenobia Stinson - NOAH): Reason For Request: Patient left leg pain. Patient Reports: Weakness with fall, able to move all extremities Denies: Falls with head strike and LOC Falls from a standing position, no LOC, patient is amnestic to the event Falls with isolated injury and deformity noted to limb Falls with inability to move post fall Cool extremities after fall or injury Chief Complaints: Leg pain/swelling PMH: Hypertension, Coronary Artery Disease, Hyperlipidemia, Dementia (e.g., Alzheimer's Disease) PMH Reviewed at 10/20/2024 Allergies Reviewed at 10/20/2024: Comments: Patient c/o LLE pain. Pain started yesterday getting worse. Difficulty ambulating. Pain is from the knee down. No swelling, discoloration, or deformity. Taking Tylenol as needed. Patient fell 3 days ago, did not note any injuries at that time. Education provided on the response time and the member was advised to monitor reported s/s and seek emergency treatment if needed. ................... ................... ................... ................... ................... ................... ................... ........ Process Pumper Note From Scot Proctor: Dispatched to the above address for a 84 y/f with a cc of pain to the LLE. Proper ppe was worn throughout the call. Upon arrival: Pt AOx3 sitting in a fowlers position in the living room sofa. Pt family was on scene to help translate for the pt (Honduran speaking only). Pt stated that she was diagnosed with osteoporosis years ago. Pt stated that she has been having the same left knee pain for a over a year now. Pt stated that she has been in and out of hospitals for the same issue. Pt stated there is nothing different with her knee today. Family noted that pt does not strictly take all her medications accordingly. Family stated that pt often forgets, and often just does not want to take any medications. Family noted that he pt does live alone, but does have the family visit often. Pt stated that nothing else is bothering her. Airway: Patent - Breathing: equal chest rise and fall - Skin: pink, warm, dry - Pupils: PERR: - CMSx4 - Vitals: see above - LS: clear - Lower extremity: minor inflammation noted to the left knee. RLL no edema/complaints. Pt noted that every 6 months she does get shots for her osteoporosis. Pt denied to any other pain. Pt denied to headache/sob/dizzin ess/falls/flu like symptoms/fever//tadeo rrhea/nausea/vomiti ng. [facility]: notified the pt to take tylenol, and pt was told to call 911/pcp if anything changes. Pt stated that she understood. Red flag were explained to the pt. Crew cleared from call. All times approximate. ................... ................... ................... ................... ................... ................... ................... ........ [facility] Consulted: Mario Ceron ................... ................... ................... ................... ................... ................... ................... ........ Disposition: Fulfilled Mario Ceron MD [address] [facility],[address], [place], [phone], [place] - [employer], MIUGEL 10/21/2024 08:56:53 OBGyn Episode No OBEpisode recorded.
--- OUTSIDE RECORDS SUMMARY | 2024-11-30 12:35 | XMS_ITS | Clinical Summary ---
Author Organization [facility] Facility Address [address] [address] Care Team Providers Care Able Seaman Name Role Phone Unavailable Primary Care Provider Unavailabl e Social History Tobacco Use Types Packs/Day Years Used Date Smoking Tobacco: Never Assessed Comments Unknown Sex and Gender Information Value Date Recorded Sex Assigned at Not on file Legal Sex Female 5:13 PM EST Gender Identity Not on file Sexual Orientation Not on file Plan of Treatment Health Maintenance Due Date Last Done Comments Pneumococcal Vaccine: 65+ Ye ars (1 of 1 - PCV) 2007 Influenza Vaccine (#1) 2024 Hepatitis B Vaccine Aged Out No longe r eligible based on patient's age to complete this topic
== END 2024-11-30 12:32 | disposition home or self-care (01) ==
LOC: HO.HSMS 11:17
PROVIDERS: PCP Internal Medicine; Visit Provider Nurse Practitioner Family
DX: R44.3 Hallucinations, unspecified (principal); F03.90 Unspecified dementia, unspecified severity, without behavioral disturbance, psychotic disturbance, mood disturbance, and anxiety
CPT/HCPCS: 99214; G2211

== ENCOUNTER 2025-06-01 11:13 | Outpatient (AMB) | payer OTHER, SELFPAY ==
[2025-06-01 11:44] VITALS: BP 130/70; PULSE 84; O2SAT 97; BMI 24.4
--- NOTE | 2025-06-01 11:44 | MHC.OFFVIS ---
Vital Signs 06/01/25 11:44 Height 4 ft 8 in Weight 109 lb BMI 24.4 BP 130/70 Blood Pressure Location Rt brachial Position Sitting Pulse 84 Pulse Source Pulse Oximeter Pulse Oximetry (%) 97 Oxygen Delivery Method Room Air Intake Visit Reasons: 6mon follow-up Front Office Coordinator Required: Yes Accompanied by: Daughter Allergies No Known Allergies Allergy (Verified 06/01/25 11:48) Medication List - Last Reconciled 06/01/25 by OCTAVIO Louis acetaminophen 500 mg PO Q6H PRN aspirin 81 mg PO DAILY atorvastatin 10 mg PO DAILY blood sugar diagnostic (FreeStyle Lite Strips) As directed cholecalciferol (vitamin D3) 50 mcg PO DAILY ciprofloxacin HCl 500 mg PO DAILY 7 days donepezil 10 mg PO BEDTIME dulaglutide (Trulicity) 0.75 mg subcut QWEEK insulin aspart U-100 (Novolog U-100 Insulin aspart) subcut lisinopril-hydrochlorothiazide 20-12.5 mg 1 tab PO DAILY memantine 10 mg PO BID mirtazapine 7.5 mg PO BEDTIME quetiapine 12.5mg bid and 25mg qhs orally 3 times a day; may use 1 extra 1/2 tab per day prn hallucinations. 30 days HPI Comments Details: 85-yr-old female presents for f/u visit for dementia, hallucinations. Patient is accompanied by her daughter, Dayana Pt denies any significant interval medical changes. Prior to visit, daughter spoke with provider to express concern about worsening hallucinations. Patient has called her to come over to see a bothersome pig valve is in her house, but the pig disappears when the daughter arrived. He just does: She also called the police recently as she thought, was in the house, however nobody was there. Pt herself reports she is doing ok. Patient denies recent fever, abdominal pain, change in chronic back pain, dysuria, odorous urine. She states she may forget things. She states she is eating, drinking, and sleeping well. She needs help with her ADLs and IADLs. She does wear incontinence protection. She is always with her daughter. Her children help her, her dtr DAYANA is her CONTOUR STITCHER also. Pt does not try to leave home w/o her children. Her daughter states that patient continues to: Talks to the people in the TV and they talk back to her. Sometimes the person in the TV is bothersome to her. She also believes she is in a relationship w/ a very famous musician- though is not. [facility] Medical History Hallucination Sundowning Dementia Lung nodule Osteoporosis Depression CKD (chronic kidney disease) Diabetic neuropathy Hyperlipemia Diabetes HTN (hypertension) Surgical History Hx of appendectomy Hx of hernia repair Hx of cataract removal with insertion of prosthetic lens Social History Alcohol intake: never Patient Tobacco Use Status: Former Tobacco user Physical Exam Vital Signs: Last Vital Signs Pulse 84 06/01/25 11:44 BP 130/70 06/01/25 11:44 Pulse Ox 97 06/01/25 11:44 Oxygen Delivery Method Room Air 06/01/25 11:44 BMI result Body Mass Index 24.4 Const General: cooperative and no acute distress Orientation/consciousness: oriented to person Resp Effort & Inspection: normal respiratory effort and able to speak in complete sentences Neuro Other: Alert when short-term memory loss. Patient is able to correctly state that today is Wednesday, that we are in the hospital clinic. Patient is unable to correctly state the date, month, which floor we are on (states the floor that the hospital has), the city or state (states the state is [place]) impaired insight. General: oriented to person Cranial nerves: Yes CN's II-XII intact bilaterally Gait exam (Neuro): Assistive device used (cane) Psych Appearance: grossly normal Speech and movement: Normal speech and movement present Affect: normal affect Attitude: cooperative Assessment & Plan Assessment & Plan (1) Hallucination: Code(s): R44.3 - Hallucinations, unspecified Category: Medical (2) Dementia: Comment: Alzheimers vs mixed MMSE limited due to language issues, hearing impairment and her education level ( does not know how to read or write) Code(s): F03.90 - Unspecified dementia, unspecified severity, without behavioral disturbance, psychotic disturbance, mood disturbance, and anxiety Category: Medical Qualifiers: Dementia type: unspecified type Dementia severity: moderate Dementia behavioral or psychological symptom: with psychotic disturbance Qualified Code(s): F03.B2 - Unspecified dementia, moderate, with psychotic disturbance Plan Patient requires 24/ supervision and assistance with ADLs Continue Memantine 10mg bid Continue Donepazil 10mg qd Continue quetiapine from 12.5mg b.i.d. and 25 mg q.h.s.. Continue quetiapine extra 12.5mg per day prn hallucinations. Encouraged pt to engage in regular physical, cognitive, and socially engaging activities. Advised to notify us w/ any worsening hallucinations, behaviors, or s/s infection. Daughter request updated paperwork be completed, we will do this when paperwork received. Pt to follow-up in 6 months or sooner prn. Coding Level of Care Code Est Pt Level 4 (71773) Diagnoses Hallucination R44.3 Moderate dementia with psychotic disturbance, unspecified dementia type F03.B2 Dementia type: unspecified type Dementia severity: moderate Dementia behavioral or psychological symptom: with psychotic disturbance
--- OUTSIDE RECORDS SUMMARY | 2025-06-01 12:27 | XMS_ITS | Clinical Summary ---
Author Organization [address] [place] [address] l[address] Address [address] [place] [phone] Phone Care Team Providers Care Supervisor Cutting Department Name Role Phone Yamileth Taveras MD Primary [...] mg total) by mouth at bedtime. Active dulaglutide (Trulicity) 4.5 mg/0.5 mL pen [...] miscIndications: Type 2 diabetes mellitus with nephropathy (CMS/HCC V24, CMS/HCC V28) USE TO CHECK BLOOD SUGAR THREE TIMES DAILY DIRECTED 1 each 5 Active atorvastatin (LIPITOR) 20 mg tablet TAKE 1 TABLET BY MOUTH DAILY 90 tablet 1 5 Active insulin syr/ndl U100 half bethel 0.3 mL 31 gauge x 5/16 syringeIndicatio ns:Type 2 diabetes mellitus with nephropathy (CMS/HCC V24, CMS/HCC V28) Inject under the skin 4 (four) times a day. Use with Insulin 4 times daily as directed. 400 each 3 5 Active insulin glargine (Lantus U-100 Insulin) 100 unit/mL injectionIndicat ions:Type 2 diabetes mellitus with nephropathy (CMS/HCC V24, CMS/HCC V28) Use 40 units at bedtime 15 mL 2 5 Active lisinopril-hydro CHLOROthiazide (PRINZIDE,ZESTOR ETIC) 20-12.5 mg per tablet Take 1 tablet by mouth 1 (one) time each day. 90 each 3 5 026 Active glucose blood test stripIndications :Type 2 diabetes mellitus with nephropathy (CMS/HCC V24, CMS/HCC V28) Use as instructedTo check sugars three times a day E11.9 300 each 3 5 Active NovoLOG U-100 Insulin aspart 100 unit/mL injection INJECT 4-13IU INTO THE SKIN THREE TIMES DAILY BEFORE MEALS PER SCALE.71-100-4IU ,101-150-8IU,150 -200-10IU,201-25 0-11IU,251-300-1 2IU,819-912-93QT 45 mL 1 5 Active Active Problems Problem Noted Date Diagnosed Date Pain in both wrists 10/02/2024 Ganglion of right wrist 10/02/2024 Ganglion of left wrist 10/02/2024 Osteoporosis 11/03/2019 Pseudophakia 03/25/2017 Diabetic neuropathy ([facility] V24, [facility] V28) 1 10/19/2014 Lung nodule 02/06/2014 Overview (11/03/2023): 02/11-stable lung nodules. 02/10-2 nodules of the right lung as described. If this is a low risk patient (nonsmoker, normal immune function, and no history of malignancy), then no further followup would be required. However, if this is a high-risk patient, then followup chest CT in one year would be suggested. Type 2 diabetes mellitus wit h nephropathy ([facility] V24, [facility] V28) 11/28/2013 Overview (11/03/2023): Pain, tingling, numbness in feet Assessment & Plan (12/28/2024 12:33 PM EDT): Orders: glucose blood test strip; Use as instructedTo check sugars three times a day E11.9 Assessment & Plan (07/14/2024 4:41 PM EST): [...] kidney disease) stage 3, GFR 30-59 ml/min ([facility] V24, [facility] V28) 03/21/2013 Overview (11/03/2023): Dr Kent Assessment & Plan (07/14/2024 4:41 PM EST): last GFR 27. Recommeded to avoid nephrotoxics, DM and HTN follow up. Will see Dr. Kent in August. HTN (hypertension) 03/07/2013 Assessment & Plan (12/28/2024 12:33 PM EDT): Assessment & Plan (07/14/2024 4:41 PM EST): The patient's antihypertensive regimen is based on their underlying medical issues. At the time of this visit, the blood pressure is well controlled on hydrochlorothiazide/lisinopril,. The patient is instructed to follow a low sodium diet and to follow up in 3 months. Orders: Hemoglobin A1c; Future Basic metabolic panel; Future Diabetes ([facility] V24, [facility] V28) 03/07/2013 Hyperlipidemia 03/07/2013 Assessment & Plan (12/28/2024 12:33 PM EDT): Assessment & Plan (07/14/2024 4:41 PM EST): [...] Overview (11/03/2023): F/u sunrise Memory deficits 03/07/2013 Immunizations Immunization Administration Dates Next Due Influenza Quadravalent, MDCK [...] History Surgery Date Site/Laterality Comments APPENDECTOMY PROCEDURE: [place] APPENDECTOMY HERNIA REPAIR PROCEDURE: HISTORICAL HERNIA REPAIR/ING CATARACT EXTRACTION PROCEDURE: HISTORICAL CATARACT REMOVAL Medical History Medical History Date Comments Anatomical narrow angle of both eyes 09/20/2014 DX: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 The stress EKG does exhibit ST changes suggestive of ischemia, with a normotensive response to the infusion. 1. Regadenoson nuclear stress test without evidence of ischemia or infarction. 2. 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 ([facility] V24, [facility] V28) 11/28/2013 DX:Controlled ty pe 2 diabetes with neuropathy (HCC); COMMENT: Pain, tingling, numbness in feet CKD (chronic kidney disease) stage 3, GFR 30-59 ml/min ([facility] V24, [facility] V28) 03/21/2013 DX:CKD (chronic kidney disea se) stage 3, GFR 30-59 ml/min ([facility]); COMMENT: Dr dunbar Chronic back pain 03/07/2013 DX:Chronic hortensia k pain; COMMENT: Chronic t12 compression fracture on ct abdomen Type 2 diabetes mellitus wit h cataract ([facility] V24, [facility] V28) 07/23/2015 DX:Type 2 diabetes mellitus with cataract ([facility]); COMMENT: NS/ Cataracts bilateral Diabetic neuropathy ([facility] V24, [facility] V28) 08/18/2015 DX:Diabetic neuropathy (HCC) DM type 2, uncontrolled, wit h renal [...] care for your loved ones. For example, child guidance counselor or elderly care for an older adult? No 07/13/2024 Education Answer Date Recorded Do you think completing more education or training, like finishing a GED, going to college, or learning a trade, would be helpful for you? No 07/13/2024 Living Situation Answer Date Recorded What is your living situation? Unrecognized valu e 07/13/2024 Comments No Sex and Gender Information Value Date Recorded Sex Assigned at Not on file Legal Sex Female 8:16 PM EST Gender Identity Not on file Sexual Orientation Not on file Obstetrics History Last Filed Vital Signs Vital Sign Reading Time Taken Comments Blood Pressure 100/64 12/28/2024 11:53 AM EDT Pulse 83 12/28/2024 11:53 AM EDT Temperature 35.9 C (96.6 F) 12/28/2024 11:53 AM EDT Respiratory Rate 12 12/28/2024 11:53 AM EDT Oxygen Saturation 99% 10/25/2024 1:42 PM EST Inhaled Oxygen Concentration - - Weight 49 kg (108 lb) 12/28/2024 11:53 AM EDT Height 142.2 cm (4' 8 ) 12/28/2024 11:53 AM EDT Body Mass Index 24.21 12/28/2024 11:53 AM EDT Plan of Treatment Upcoming Encounters Date Type Department Care Team (Late st Contact Info) Description 06/25/2025 4:40 PM EDT Office Visit Endocrinology - [place] [address] [place] [phone] Nita Davalos PA [address], [place] 06/26/2025 4:00 PM EDT Office Visit Nephrology - [facility] [address] [place] [address] Bhargav Borges MD [address] [place] [phone] Health Maintenance Due Date Last Done Comments Diabetes: Annual Foot Exam 1950 Zoster Vaccines (1 of 2) 1961 RSV Immunization Adult Patients (1 - 1-dose 75+ series) 2017 Diabetes: Annual Urine Albumin-Creatinine Ratio (uACR) 01/15/2024 01/14/2023 Depression Screening 08/30/2024 DTaP,Tdap,and Td Vaccines (2 - Td or Tdap) 11/06/2024 11/06/2014 Diabetes: Annual Retina Eye Exam 02/23/2025 02/24/2024 Influenza Vaccine (#1) 2025 , 06/10/2023, 05/29/2022, Additional history exists Diabetes: Blood Sugar Control Test (HGBA1C) 06/30/2025 12/28/2024, 05/04/2024, 05/04/2024, Additional history exists Falls Risk Assessment 07/13/2025 07/13/2024 Medicare Annual Wellness Visit 07/13/2025 07/13/2024 Social Influencers of Health Screening 07/13/2025 07/13/2024 Diabetes: Annual GFR (Glomerular Filtration Rate) 12/28/2025 12/28/2024, 05/04/2024, 05/04/2024, Additional history exists Hypertension/CHF/CAD Annual BMP Blood Test 12/28/2025 12/28/2024, 05/04/2024, 05/04/2024, Additional history exists Cholesterol Screening (Lipid Panel) 07/14/2028 07/14/2023 Osteoporosis Screening (Bone Density Screening) 09/17/2032 09/17/2022, 11/02/2019 Pneumococcal Vaccine: 50+ Years Completed 09/17/2015, 04/26/2014 COVID-19 Vaccine Discontinued HIB Vaccines Aged Out [...] age to complete this topic Meningococcal B Vaccine Aged Out No l onger eligible based on patient's age to complete this topic RSV Immunization Patients Under 20 months Aged Out No longer eligible based on patient's age to complete this topic Varicella Vaccines Aged Out No longer eligible based on patient's age to complete this topic Procedures Procedure Name Priority Date/Time Associated Diagnosis Comments BASIC METABOLIC PANEL Routine 12/28/2024 1:18 PM EDT Type 2 diabetes mellitus with nephropathy ([facility] V24, [facility] V28) HEMOGLOBIN A1C Routine 12/28/2024 1:18 PM EDT Type 2 diabetes mellitus with nephropathy ([facility] V24, [facility] V28) Primary hypertension Mixed hyperlipidemia DIABETES EYE EXAM Routine 02/24/2024 LIPID PANEL Routine 07/14/2023 URINE ALBUMIN CREATININE RATIO Routine 01/14/2023 DXA BONE DENSITY STUDY 1+ SITS AXIAL SKEL Routine 09/17/2022 11:31 AM EST Encounter for screening for osteoporosis from Last 3 Months or Most Recently Relevant to Health Maintenance Results * (ABNORMAL) Hemoglobin A1c (12/28/2024 1:18 PM EDT) Hemoglobin A1C 8.6(H) <6.5 % LAB CHEMISTRY METHOD 12/28/2024 10:17 PM EDT [facility] Mean Bld Glu Estim. 200 mg/dL LAB CHEMISTRY METHOD 12/28/2024 10:17 PM EDT [facility] Blood Venous blood specimen / Unknown Venipuncture / Unknown 12/28/2024 1:18 PM EDT 12/28/2024 1:18 PM EDT us Yamileth Taveras MD LAB BLOOD ORDERABL ES Final Result [facility] [address] [place] [address], * (ABNORMAL) Basic metabolic panel (12/28/2024 1:18 PM EDT) Sodium 142 133 - 145 mmol/L LAB CHE[facility]STR[facility] Potassium 4.0 3.5 - 5.5 mmol/L LAB CHEMISTRY METHOD 12/28/2024 6:21 PM [facility] Chloride 104 96 - 110 mmol/L LAB CHEMISTRY METHOD 12/28/2024 6:21 PM [facility] CO2 31 21 - 32 mmol/L LAB CHEMISTRY METHOD 12/28/2024 6:21 PM [facility] Anion Gap 7 3 - 11 LAB CHEMISTRY METHOD 12/28/2024 6:21 PM [facility] Glucose 86 70 - 100 mg/dL LAB CHEMISTRY METHOD 12/28/2024 6:21 PM [facility] BUN 50(H) 5 - 25 mg/dL LAB CHEMISTRY METHOD 12/28/2024 6:21 PM [facility] Creatinine 2.55(H) 0.50 - 1.10 mg/dL LAB CHEMISTRY METHOD 12/28/2024 6:21 PM [facility] eGFR 18(L) >=60 mL/min/1. 73m2 LAB CHEMISTRY METHOD 12/28/2024 6:21 PM [facility] Comment:Calculation based on the Chronic Kidney Disease Epidemiology Collaboration (CKD-EPI) equation refit without adjustment for race. BUN/Creatinine Ratio 19.6 LAB CHEMISTRY METHOD 12/28/2024 6:21 PM [facility] Calcium 10.1 8.5 - 10.5 mg/dL LAB CHEMISTRY METHOD 12/28/2024 6:21 PM [facility] Blood Venous blood specimen / Unknown Venipuncture / Unknown 12/28/2024 1:18 PM EDT 12/28/2024 1:18 PM EDT Nita KINNEY LAB BLOOD ORDERABLES Final Resul t [facility] [address] [place] [address], * Diabetes Eye Exam (02/24/2024) [facility] Diabetes: Annual Retina Eye Exam ABSTRACTED Historical Provider MD HEALTH MAINTENANCE Final Result * (ABNORMAL) Lipid panel (07/14/2023) [facility] LDL/HDL Ratio 4 0 - 4 Triglycerides 129 0 - 150 mg/dL Cholesterol 237(A) 0 - 200 mg/dL HDL 57 >=40 mg/dL LDL Cholesterol 155(A) 0 - 100 mg/dL Blood Venous blood specimen / Unknown Historical Provider LAB BLOOD ORDERABLES Patricia l Result * Urine Albumin Creatinine Ratio (01/14/2023) [facility] Urine Albumin Creatinine Ratio ABSTRACTED Historical Provider MD HEALTH MAINTENANCE Final Result * DXA BONE DENSITY STUDY 1+ SITS AXIAL SKEL (09/17/2022 11:31 AM EST) Anatomical Region Laterality Modality Bone Densitometr y 08/27/2022 12:2 3 PM EST Narrative 09/17/2022 12:57 PM EST BONE DENSITY (DEXA) Lumbar Spine T-score is -3.4. (SD relative to 20-29 y/o adult) Z-score is -0.7. (SD relative to age matched peers) This is considered osteoporosis by WHO criteria. Left Hip T-score is -3.7. Z-score is -1.3. This is considered osteoporosis by WHO criteria. IMPRESSION: This patient is considered to have osteoporosis by WHO criteria. The [facility] Department of Internal Medicine recommends using National [...] alternative screening schedule based on chase Fernandez., [facility] September 17, 2011 for patients with osteopenia [...] to have osteoporosis by WHO criteria. The [facility] Department of Internal Medicine recommendsusing National Osteoporosis [...] BMD testingevery 15 years Yamileth Taveras MD [facility] DXA PROCEDURES Final Result from Last 3 Months or Most Recently Relevant to Health Maintenance [place] [address] [address] [phone] [facility] MEDIC[facility] Member Subscriber Plan / Payer (Ef fective 2013-Present) Name:Danisha Guerrero Relation to Subscriber:Self Name:Danisha Guerrero Payer ID:[id number] Group ID:[id number] Type:Not on file Address: [facility] [address] [id number] Care Teams Supervisor Cutting Department Relationship Specialty Start Date End Date Yamileth Taveras MD [address] [place] [phone] PCP - General Internal Medicine 03/05/22
== END 2025-06-01 12:27 | disposition home or self-care (01) ==
LOC: HO.HSMS 11:13
PROVIDERS: PCP Internal Medicine; Visit Provider Nurse Practitioner Family
DX: R44.3 Hallucinations, unspecified (principal); F03.B2 Unspecified dementia, moderate, with psychotic disturbance
CPT/HCPCS: 99214

== ENCOUNTER → 2025-06-01 11:13 | Outpatient (BNVA) | payer OTHER, SELFPAY | PROVIDERS: PCP Internal Medicine; Visit Provider Nurse Practitioner Family | DX: R44.3 Hallucinations, unspecified (principal); F03.B2 Unspecified dementia, moderate, with psychotic disturbance | CPT/HCPCS: 99212 ==

== ENCOUNTER 2025-08-09 14:55 | Outpatient (AMB) | payer OTHER, SELFPAY ==
--- OUTSIDE RECORDS SUMMARY | 2025-08-07 14:00 | XMS_ITS | Encounter Summary ---
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 Phone Yamileth Taveras MD Primary Care Prov ider Reason for Referral * Consultation (Routine) - Authorized Specialty Diagnoses / Procedures Referred By Contact Referred To Contact Orthopaedics / Orthopaedic Surgery Diagnoses Acute pain of right knee Candice Figueredo PA [address] [place] [address] Phone: tel: fax: Orthopedics [address] Phone: tel: fax: Referral ID Status Reason Start Date Expiration Date Visits Requested Visits Authorized [id number] Authorized Specialty Services Required 08/07/2025 08/07/2026 1 1 * Consultation (Routine) - Pending Review Specialty Diagnoses / Procedures Referred By Gary davis Referred To Contact Rheumatology Diagnoses Acute pain of right knee Acute gout of right knee, unspecified cause Candice Figueredo PA [address] [place] [address] Phone: tel: fax: [address] [phone] Phone: tel: Referral ID Status Reason Start Date Expiration Date Visits Requested Visits Authorized [id number] Pending Review Specialty Services Required 08/07/2025 08/07/2026 1 1 Reason for Visit * Reason Comments er follow up Leg pain right Encounter Details Date Type Department Care Team (Late st Contact Info) Description 08/07/2025 2:00 PM EST Office Visit Adult Medicine [facility] [address] [place], [place] [phone] Candice Figueredo PA [address] [place], [place] Acute pain of right knee (Primary Dx); Acute gout of right knee, unspecified cause; Ingrowing toenail of right foot; Productive cough; Type 2 diabetes mellitus with stage 4 chronic kidney disease, with long-term current use of insulin ([facility] V24, [facility] V28); Diabetic polyneuropathy associated with type 2 diabetes mellitus ([facility] V24, [facility] V28); Type 2 diabetes mellitus with diabetic autonomic neuropathy, with long-term current use of insulin ([facility] V24, [facility] V28) Social History Tobacco Use Types Packs/Day Years Used Date Smoking Tobacco: Former Smokeless Tobacco: Never Tobacco Cessation:Counseling Given: Not Answered Alcohol Use Standard Drinks/Week Comments No 0 (1 standard drink = 0.6 oz pur e alcohol) Housing Instability Answer Date Recorde d Are you worried that in the next 2 months you may not have stable housing? No 07/17/2025 Food Access & Nutrition Answer Date Rec orded Do you have access to a vari ety of food including fruits and vegetables? No 07/17/2025 Access to Healthcare Answer Date Record ed Within the last 3 months, candice w many times did you visit the emergency department for your medical care? 0 07/13/2024 Health Literacy Answer Date Recorded How often do you need to hav e someone help you when you read instructions, pamphlets, or other written material from your doctor or pharmacy? Sometimes 07/17/2025 Caregiver: How often do you need to have someone help you when you read instructions, pamphlets, or other written material from your doctor or pharmacy? Not on file 07/17/2025 Financial Risk Answer Date Recorded How hard is it for you to pa y for the very basics like food, housing, medical care, and air conditioning / heating? Not very hard 07/17/2025 Transportation Answer Date Recorded Has the lack of transportati on kept you from meetings, work, or from getting things needed for daily living? No Has the lack of transportati on kept you from medical appointments or from getting medications? No 07/17/2025 Social Isolation Answer Date Recorded How often do you feel lonely or isolated from th ose around you? Often 07/17/2025 Food Risk Answer Date Recorded Within the past 12 months we worried whether our food would run out before we got money to buy more. Never true 07/17/2025 Within the past 12 months th e food we bought just didn't last and we didn't have money to get more. Never true 07/17/2025 Dependent Care Answer Date Recorded Do you need help finding or paying for care for your loved ones. For example, child care centre director or elderly care for an older adult? No 07/17/2025 Education Answer Date Recorded Do you think completing more education or training, like finishing a GED, going to college, or learning a trade, would be helpful for you? No 07/17/2025 Employment and Income Answer Date Recor ded During the last four weeks, have you been actively looking for work? No 07/17/2025 Living Situation Answer Date Recorded What is your living situation? Unrecognized valu e 07/17/2025 Comments No Sex and Gender Information Value Date Recorded Sex Assigned at Not on file Legal Sex Female 8:16 PM EST Gender Identity Not on file Sexual Orientation Not on file documented as of this encounter Last Filed Vital Signs Vital Sign Reading Time Taken Comments Blood Pressure 124/76 08/07/2025 1:44 PM EST Pulse 85 08/07/2025 1:44 PM EST Temperature 36.1 C (97 F) 08/07/2025 1:44 PM EST Respiratory Rate 14 08/07/2025 1:44 PM EST Oxygen Saturation 97% 08/07/2025 1:44 PM EST Inhaled Oxygen Concentration - - Weight 47.4 kg (104 lb 6.4 oz) 08/07/2025 1:44 P M EST Height 142.2 cm (4' 8 ) 08/07/2025 1:44 PM EST Body Mass Index 23.41 08/07/2025 1:44 PM EST documented in this encounter Patient Instructions * Attachments The following attachments cannot be sent through Care Everywhere. * Effusion: Joint: General Info (Cameroonian) * Knee Arthritis: Exercises (Cameroonian) * Gout (Cameroonian) documented in this encounter Ordered Prescriptions Prescription Sig Dispense Quantity Refills Last Filled Start Date End Date doxycycline hyclate (VIBRA-TABS) 100 mg tablet Take 1 tablet (100 mg total) by mouth 2 (two) times a day for 7 days. Take with a full glass of water and do not lie down for at least 30 minutes after. 14 tablet 08/08/2025 documented in this encounter Progress Notes * NIRMAL Coats - 08/07/2025 2:00 PM ESTAddended by: CANDICE FIGUEREDO on: 08/08/2025 10:35 AM Modules accepted: Orders * NIRMAL Coats - 08/07/2025 2:00 PM EST Images from the original note were not included. CHIEF COMPLAINT: er follow up (Leg pain right) IDENTIFIER: Danisha Guerrero is a 85 y.o. old female. HPI: Patient presents to the office today for reevaluation of right knee pain. She is accompanied by mike. Patient is primarily Cameroonian-speaking. Head Of Cyt[employer] Yarelis #[id number] is used. On 07/21/2025 patient presented to [facility] ER endorsing 3 days of right knee pain. No trauma. Reported history of gout a few years ago and felt similar. Not on medication for gout prevention. Endorsed gradual onset of pain. At time of ER presentation was having difficulty walking and endorsed swelling of the joint. CBC without leukocytosis. Lyme testing negative. Uric acid normal though on the higher end of normal range. X-ray with small joint effusion. Chondrocalcinosis. No acutefinding. Bones diffusely demineralized. Has osteoporosis and prescribed Prolia. Has upcoming bone density testing. Today endorses improvement in pain and swelling. No redness. No warmth. No fever or chills. Still has difficulty with range of motion. No pain at rest. Pain aggravated by weightbearing, walking, ADLs. Has uncontrolled diabetes and is following with endocrinology. Last A1c 8.6%. Fasting blood glucosethis morning 145 mg/dL. Patient following with podiatry. Complains of foot pain, nail issues. Previously had treatment for ingrowing toenail. No redness or swelling. No warmth. No pustular drainage. Has follow-up with podiatry on 08/27/2025. Also endorses cough for the last few days. Cough is productive of lioil-zxgij-ynosdnl phlegm. No fever, chills, sinus pressure, ear pain, rhinorrhea, nasal congestion, post nasal drip, sore throat, nasuea, vomiting, wheezing, shortness of breath, loss of taste, or loss of smell. Granddaughter sick with similar symptoms and not yet evaluated. ROS: GENERAL: SEE HPI HEENT: SEE HPI RESPIRATORY: SEE HPI CARDIOVASCULAR: No chest pain GI: SEE HPI ENDO: see HPI MUSCULOSKELETAL: See HPI SKIN: See HPI PAST MEDICAL HISTORY: Patient Active Problem List Diagnosis Date Noted Pain in both wrists 10/02/2024 Ganglion of right wrist 10/02/2024 Ganglion of left wrist 10/02/2024 Osteoporosis 11/03/2019 Pseudophakia 03/25/2017 Diabetic neuropathy ([facility] [place]24, [facility] V28) 08/18/2015 Lung nodule 02/06/2014 Type 2 diabetes mellitus with nephropathy ([facility] V24, [facility] V28) 11/28/2013 CKD (chronic kidney disease) stage 3, GFR 30-59 ml/min ([facility] V24, [facility] V28) 03/21/2013 HTN (hypertension) 03/07/2013 Diabetes ([facility] V24, [facility] V28) 03/07/2013 Hyperlipidemia 03/07/2013 Chronic back pain 03/07/2013 Depression 03/07/2013 Memory deficits 03/07/2013 SOCIAL HISTORY: Social History Tobacco Use Smoking status: Former Smokeless tobacco: Never Substance Use Topics Alcohol use: No FAMILY HISTORY: Family Status Relation Name Status Father not sure why Mother Uncle (Not Specified) Brother (Not Specified) Sister (Not Specified) MGF (Not Specified) MGM (Not Specified) PGF (Not Specified) PGM (Not Specified) Aunt (Not Specified) Other (Not Specified) Neg Hx (Not Specified) No partnership data on file Family History[1] ACTIVE MEDICATIONS: Medications Taking[2] ALLERGIES: Patient has no known allergies. PHYSICAL EXAM: Blood pressure 124/76, pulse 85, temperature 36.1 ??C (97 ??F), temperature source Temporal, resp. rate 14, height 1.422 m (56 ), weight 47.4 kg (104 lb 6.4 oz), SpO2 97%. Body mass index is 23.41 kg/m??. BMI is 18.5 to 24.9 (within the normal range) and will be followed APPEARANCE: Alert and in no acute distress, appears comfortable EYES: Conjunctiva and sclera normal. NOSE/SINUS: Does not appear congested. No drainage. MOUTH/THROAT: No stridor. No tripoding. No dysphonia/hoarseness. No trismus. NECK: Trachea midline. No rigidity. HEART: RRR with normal S1 and S2, no murmurs LUNG: No increased work of breathing is appreciated. Lungs are clear to auscultation without wheezes, rales, or rhonchi EXTREMITIES: Extremities warm and well perfused without clubbing, cyanosis, or edema. Right patellawithout bony tenderness. No significant effusion appreciated on exam. Patient experiences limited range of motion with flexion and extension. No pain with valgus or varus stress. Left patella nontender. SKIN: Thickening and discoloration of right great toenail consistent with onychomycosis. Ingrowing right great toenail. No superimposed infection or paronychia appreciated. No erythema, warmth, ecchymosis. No streaking erythema. LABS: Lab Results Component Value Date NA 139 07/21/2025 K 3.6 07/21/2025 CL 101 07/21/2025 CO2 30 07/21/2025 GLUCOSE 202 (H) 07/21/2025 BUN 23 07/21/2025 CREATININE 1.87 (H) 07/21/2025 CALCIUM 8.9 07/21/2025 PROT 6.7 07/21/2025 ALBUMIN 4.0 07/21/2025 BILITOT 0.6 07/21/2025 AST 15 07/21/2025 ALT 11 07/21/2025 URICACID 7.4 07/21/2025 ALKPHOS 91 07/21/2025 EGFR 26 (L) 07/21/2025 Uric acid Order: [id number] Status: Final result Test Result Released: No (inaccessible in MyChart) 0 Result Notes Component Ref Range & Units (hover) 2 wk ago Uric Acid 7.4 IMAGING: See HPI IMPRESSION: 1. Acute pain of right knee 2. Acute gout of right knee, unspecified cause 3. Ingrowing toenail of right foot 4. Productive cough 5. Type 2 diabetes mellitus with stage 4 chronic kidney disease, with long-term current use of insulin ([facility] V24, [facility] V28) 6. Diabetic polyneuropathy associated with type 2 diabetes mellitus ([facility] V24, [facility] V28) 7. Type 2 diabetes mellitus with diabetic autonomic neuropathy, with long-term current use of insulin ([facility] V24, [facility] V28) PLAN: Knee pain is improved. Patient to continue supportive care including rest, ice, compression, moist heat, gentle stretching exercises as tolerated. Printout of exercises provided today. Can take Tylenol as needed for discomfort. Continue to avoid all NSAIDs given CKD. Patient continues with limited range of motion. Will consult orthopedics. Borderline elevated uric acid and history of gout previously. Did improve with colchicine. Will consult rheumatology. Last flare was reported to be years previously therefore may not be a candidate for prevention. Patient to follow-up with podiatry regarding ongoing foot pain, onychomycosis, ingrowing toenail. Productive cough: Viral swab ordered. Await results to determine further therapeutic options and oradditional interventions. Patient to follow-up low carbohydrate diet. Patient to continue with medication compliance. Patientto keep upcoming appointment with endocrinology as scheduled. Patient to keep upcoming bone density testing and follow-up with endocrinology. Pt is educated on alarm sx's that would warrant emergency room evaluation. Patient understands and agrees to plan. Patient will return to the office for routine care with PCP team. Will contact the office sooner with any further problems or concerns, symptoms failing to improve. The total length of this visit was 46 minutes. This includes time reviewing chart prior to the visit, obtaining history, interaction with and evaluation of the patient, review of recent lab work/imaging, ordering testing/referrals, documenting clinical information as well as providing counseling regarding the above diagnoses. Orders Placed This Encounter Procedures Respiratory virus panel molecular study Standing Status: Future Expiration Date: 08/07/2026 What is the purpose of this test order?: Diagnostic If your patient is symptomatic or you suspect COVID, choosing diagnostic will place an isolation flag upon pharmacy order entry technician: OK To which resulting agency are you sending this order? (Please ensure this field matches Resulting Agency below): [facility] MARGARITA ESPINOZA) [[id number]] Specimen Type:: Swab [102] Specimen Source:: Nares [406] Release to patient: Immediate [1] Ambulatory referral to Rheumatology Knee pain, swelling. Gout. Borderline high uric acid Standing Status: Future Expiration Date: 08/07/2026 Referral Priority: Routine Referral Type: Consultation Referral Reason: Specialty Services Required Referral Location: [facility] Requested Specialty: Rheumatology Number of Visits Requested: 1 Ambulatory referral to Orthopedic Right knee pain, swelling. Limited range of motion. Small joint effusion. Findings of chondrocalcinosis Standing Status: Future Expiration Date: 08/07/2026 Referral Priority: Routine Referral Type: Consultation Referral Reason: Specialty Services Required Requested Specialty: Orthopaedics Number of Visits Requested: 1 ADDITIONAL ORDERS: AMB REFERRAL TO RHEUMATOLOGY AMB REFERRAL TO ORTHOPEDIC NIRMAL Coats on 08/07/2025 at 3:10 PM EST [1] Family History Problem Relation Name Age of Onset No Known Problems Father No Known Problems Mother Cataracts Uncle daughter No Known Problems Brother No Known Problems Sister No Known Problems Maternal Grandfather No Known Problems Maternal Grandmother No Known Problems Paternal Grandfather No Known Problems Paternal Grandmother No Known Problems Aunt Cataracts Other daughter Blindness Neg Hx Glaucoma Neg Hx Macular degeneration Neg Hx Strabismus Neg Hx [2] Outpatient Medications Marked as Taking for the 08/07/25 encounter (Office Visit) with NIRMAL Coats Medication Sig Dispense Refill aspirin 81 mg EC tablet Take 1 tablet (81 mg total) by mouth 1 (one) time each day. atorvastatin (LIPITOR) 20 mg tablet TAKE 1 TABLET BY MOUTH DAILY 90 tablet 1 cholecalciferol (VITAMIN D-3) 50 mcg (2,000 unit) capsule Take 1 capsule (2,000 Units total) by mouth 1 (one) time each day. colchicine (COLCRYS) 0.6 mg tablet Take 1 tablet (0.6 mg total) by mouth as directed. Take 1 tablettwice a day for 3 days, then begin 1 tablet a day for the next 7 days. Not take the medication for more than 10 days straight. 13 tablet 0 denosumab (Prolia) 60 mg/mL syringe syringe Inject 1 mL (60 mg total) under the skin 1 (one) time for 1 dose. 1 mL 0 donepeziL (ARICEPT) 10 mg tablet Take 1 tablet (10 mg total) by mouth at bedtime. at bedtime. dulaglutide (Trulicity) 4.5 mg/0.5 mL pen injector injection Inject 0.5 mL (4.5 mg total) under theskin 1 (one) time per week. 2 mL 3 FREESTYLE LANCETS MISC USE THREE TIMES DAILY TO CHECK BLOOD SUGAR glucose blood test strip Use as instructedTo check sugars three times a day E11.9 300 each 3 insulin glargine (Lantus U-100 Insulin) 100 unit/mL injection Use 40 units at bedtime 15 mL 2 insulin syr/ndl U100 half bethel 0.3 mL 31 gauge x 5/16 syringe Inject under the skin 4 (four) timesa day. Use with Insulin 4 times daily as directed. 400 each 3 insulin syringe-needle U-100 1 mL 31 gauge x 5/16 syringe Inject 1 each under the skin 4 (four) times a day. Use with Insulin 4 times daily as instructed. 400 each 1 lancets lancets To check sugars three times a day E11.9 lisinopril-hydroCHLOROthiazide (PRINZIDE,ZESTORETIC) 20-12.5 mg per tablet Take 1 tablet by mouth 1(one) time each day. 90 each 3 memantine (NAMENDA) 10 mg tablet Take 1 tablet (10 mg total) by mouth 2 (two) times a day. mirtazapine (REMERON) 15 mg tablet Take 1 tablet (15 mg total) by mouth. NovoLOG U-100 Insulin aspart 100 unit/mL injection INJECT INTO THE SKIN THREE TIMES DAILY BEFORE MEALS PER <70: 0 units, 71-100: 4 units, 101-150: 6 units, 151-200: 8 units, 201-250: 10 units, 251-300: 12 units, 301-350: 13 units, 351- 400: 14 units, >400: call me 45 mL [address] [facility] [place] TO CHECK BLOOD SUGAR THREE TIMES DAILY DIRECTED 1 each 0 QUEtiapine (SEROquel) 25 mg tablet Take 1 tablet (25 mg total) by mouth 2 (two) times a day. ramelteon (ROZEREM) 8 mg tablet Take 1 tablet (8 mg total) by mouth at bedtime. documented in this encounter Plan of Treatment Upcoming Encounters Date Type Department Care Team (Late st Contact Info) Description 09/11/2025 12:30 PM EST Office Visit Adult Medicine [facility] [address] [place], [place] [phone] Lakisha Corbett PA [address] [place], [place] 09/18/2025 10:30 AM EST Appointment [facility] Bone Density [address] [place] [phone] 09/26/2025 12:00 PM EST Office Visit Endocrinology [address] [phone] Nita Davalos PA [address] [place], [place] 01/08/2026 11:30 AM EDT Office Visit Nephrology - [address] [place] [phone] José Miguel Kent MD [address] [phone] Scheduled Referrals Name Type Priority Associated Diagnoses Order Schedule Ambulatory referral to Rheumatology Outpatient Referral Routine Acute pain of right knee Acute gout of right knee, unspecified cause 1 Occurrences starting 08/07/2025 until 08/07/2026 Ambulatory referral to Orthopedic Outpatient Referral Routine Acute pain of right knee 1 Occurrences starting 08/07/2025 until 08/07/2026 documented as of this encounter Procedures Procedure Name Priority Date/Time Associated Diagnosis Comments RESPIRATORY VIRUS PANEL MOLECULAR STUDY Routine 08/07/2025 3:10 PM EST Productive cough Type 2 diabetes mellitus with stage 4 chronic kidney disease, with long-term current use of insulin ([facility] V24, [facility] V28) Diabetic polyneuropathy associated with type 2 diabetes mellitus ([facility] V24, [facility] V28) Type 2 diabetes mellitus with diabetic autonomic neuropathy, with long-term current use of insulin ([facility] V24, [facility] V28) documented in this encounter Results * Respiratory virus panel molecular study (08/07/2025 3:10 PM EST) Adenovirus Detection by PCR Not Detected Not Detected LAB MICROBIOLOGY METHOD 08/07/2025 5:27 PM [facility] Influenza A PCR Not Detected Not Detected LAB MICROBIOLOGY METHOD 08/07/2025 5:27 PM [facility] Influenza B PCR Not Detected Not Detected LAB MICROBIOLOGY METHOD 08/07/2025 5:27 PM [facility] Coronavirus 229E Not Detected Not Detected LAB MICROBIOLOGY METHOD 08/07/2025 5:27 PM [facility] Coronavirus HKU1 Not Detected Not Detected LAB MICROBIOLOGY METHOD 08/07/2025 5:27 PM [facility] Coronavirus OC43 Not Detected Not Detected LAB MICROBIOLOGY METHOD 08/07/2025 5:27 PM [facility] Coronavirus NL63 Not Detected Not Detected LAB MICROBIOLOGY METHOD 08/07/2025 5:27 PM [facility] Parainfluenza Virus 1 Not Detected Not Detected LAB MICROBIOLOGY METHOD 08/07/2025 5:27 PM [facility] Parainfluenza Virus 2 Not Detected Not Detected LAB MICROBIOLOGY METHOD 08/07/2025 5:27 PM [facility] Parainfluenza Virus 3 Not Detected Not Detected LAB MICROBIOLOGY METHOD 08/07/2025 5:27 PM [facility] Parainfluenza Virus 4 Not Detected Not Detected LAB MICROBIOLOGY METHOD 08/07/2025 5:27 PM [facility] RSV PCR Not Detected Not Detected LAB MICROBIOLOGY METHOD 08/07/2025 5:27 PM [facility] Human Metapneumovirus A and B Not Detected Not Detected LAB MICROBIOLOGY METHOD 08/07/2025 5:27 PM [facility] Rhinovirus/Entero virus Not Detected Not Detected LAB MICROBIOLOGY METHOD 08/07/2025 5:27 PM [facility] Bordetella pertussis Not Detected Not Detected LAB MICROBIOLOGY METHOD 08/07/2025 5:27 PM [facility] Bordetella parapertussis Not Detected Not Detected LAB MICROBIOLOGY METHOD 08/07/2025 5:27 PM [facility] Mycoplasma pneumo by PCR Not Detected Not Detected LAB MICROBIOLOGY METHOD 08/07/2025 5:27 PM [facility] Chlamydia pneumoniae Not Detected Not Detected LAB MICROBIOLOGY METHOD 08/07/2025 5:27 PM [facility] SARS COV-2 Not Detected Not Detected LAB MICROBIOLOGY METHOD 08/07/2025 5:27 PM [facility] Swab Both anterior nares / Unknown Non-blood Collection / Unknown 08/07/2025 3:10 PM EST 08/07/2025 3:10 PM EST [facility] - 08/07/2025 5:27 PM EST Testing was performed using the [employer] Respiratory Pathogen PCR Assay. All results must be correlated with the clinical findings. Results should not be used as the sole basis for diagnosis. False Negative results may occur from the presence of sequence variants in the region targeted by the assay or the presence of inhibitors. Results may be affected by concurrent antiviral/antimicrobial therapy or levels of organisms that are below the limit of detection. Candice KINNEY LAB MICROBIOLOGY - GENERAL ORDER ABELARDO Final Result [facility] [address] [place] [address], documented in this encounter Visit Diagnoses Diagnosis Acute pain of right knee- Primary Acute gout of right knee, unspecified cause Ingrowing toenail of right foot Productive cough Cough Type 2 diabetes mellitus with stage 4 chronic kidney disease, with long-term current use of insulin ([facility] [place], [facility] V28) Diabetic polyneuropathy associated with type 2 diabetes mellitus ([facility], [facility] V28) Type 2 diabetes mellitus with diabetic autonomic neuropathy, with long-term current use of insulin [place] [place] [facility] [place] documented in this encounter Discontinued Medications Medication Sig Discontinue Reason Start Date End Da te colchicine (COLCRYS) 0.6 mg tablet Take 1 tablet (0.6 mg total) by mouth as directed. Take 1 tablet twice a day for 3 days, then begin 1 tablet a day for the next 7 days. Not take the medication for more than 10 days straight. 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
--- NOTE | 2025-08-09 14:43 | A.OFFVIS_ITS ---
Intake Visit Reasons: Medical Cert Guardianship form Weed Science Research Technician Required: Yes Weed Science Research Technician Services: Weed Science Research Technician Offered & Declined Weed Science Research Technician Name: Dtr and Granddtr Accompanied by: Daughter Allergies No Known Allergies Allergy (Verified 08/09/25 14:46) HPI Comments Details: 85-yr-old female presents to discuss request to complete Guardianship & Conservatorship paperwork in the setting of dementia, hallucinations. Patient is accompanied by her daughter, Danisha, and granddtr. Visit was conducted via telephone, as the patient/family were unable to utilize televideo technology. Patient continues to be forgetful. Patient can still have some hallucinations. * Talks to the people in the TV and they talk back to her. Sometimes the person in the TV is bothersome to her. * She also believes she is in a relationship w/ a very famous musician- though is not. Patient has been eating, drinking, and sleeping well. Patient continues to require max assist with ADLs and and IADLs. * She requires 22/03 supervision and care * Provided by her dtr, who is her SHAREPOINT ENGINEER, and [facility] * Family is with her 24 * She needs help with dressing, bathing, toileting * She is incontinent of urine and requires incontinence protection * She may ask to use the bathroom to have a BM, but also may be incontinent * She can ambulate with assist * She needs set-up for meals. * She is unable to cook in any capacity. * She is unable to manage her finances due to forgetfulness and cognitive difficulties * She is unable to make medical decisions due to limited insight into her me dical status and comprehension of risks vs benefits Patient's duaghter states that the patinet has previously consistently expressed her advanced directives to be full code status. Patient herself is not able to answer this independently today. FOR[facility]LY [facility], [facility] Medical History Hallucination Sundowning Dementia Lung nodule Osteoporosis Depression CKD (chronic kidney disease) Diabetic neuropathy Hyperlipemia Diabetes HTN (hypertension) Surgical History Hx of appendectomy Hx of hernia repair Hx of cataract removal with insertion of prosthetic lens Social History Alcohol intake: never Patient Tobacco Use Status: Former Tobacco user Physical Exam Const General: cooperative and no acute distress Orientation/consciousness: oriented to person Resp Effort & Inspection: normal respiratory effort and able to speak in complete sentences Neuro Other: Alert when short-term memory loss. Patient is able to correctly state that today is Wednesday, that we are in the hospital clinic. Patient is unable to correctly state the date, month, which floor we are on (states the floor that the hospital has), the city or state (states the state is [place]) impaired insight. General: oriented to person Cranial nerves: Yes CN's II-XII intact bilaterally Gait exam (Neuro): Assistive device used (cane) Psych Appearance: grossly normal Speech and movement: Normal speech and movement present Affect: normal affect Attitude: cooperative Telehealth Telehealth Telehealth Platform: [employer] Location of provider rendering services: practice address Location of patient: address on file Patient Identification confirmed using: Name, : Yes Telehealth method: voice only Patient verbally consented to treatment: Yes Patient verbally consented to billing insurance company: Yes Patient informed of any privacy concerns related to visit: Yes Minutes spent on Phone/Video with Pt.: 25 Assessment & Plan Assessment & Plan (1) Dementia: Comment: Alzheimers vs mixed MMSE limited due to language issues, hearing impairment and her education level (does not know how to read or write) Code(s): F03.90 - Unspecified dementia, unspecified severity, without behavioral disturbance, psychotic disturbance, mood disturbance, and anxiety Category: Medical Qualifiers: Dementia behavioral or psychological symptom: with psychotic disturbance Dementia severity: moderate Dementia type: unspecified type Qualified Code(s): F03.B2 - Unspecified dementia, moderate, with psychotic disturbance (2) Hallucination: Code(s): R44.3 - Hallucinations, unspecified Category: Medical Plan Guardianship & Conservatorship paperwork completed. In the meantime, continue: Patient requires 24/7 supervision and assistance with ADLs and IADLs Continue Memantine 10mg bid Continue Donepazil 10mg qd Continue quetiapine from 12.5mg b.i.d. and 25 mg q.h.s. * Continue quetiapine extra 12.5mg per day prn hallucinations. Encouraged pt to engage in regular physical, cognitive, and socially engaging activities. Advised to notify us w/ any worsening hallucinations, behaviors, or s/s infection. Pt to follow-up as scheduled or sooner prn. Coding Level of Care Code Tele Est Pt Level 3 (14096) Diagnoses Moderate dementia with psychotic disturbance, unspecified dementia type F03.B2 Dementia behavioral or psychological symptom: with psychotic disturbance Dementia severity: moderate Dementia type: unspecified type Hallucination R44.3
--- OUTSIDE RECORDS SUMMARY | 2025-08-09 22:29 | XMS_ITS | Clinical Summary ---
Author Organization [address] [place] [address] lding Address [address] [place] [phone] Phone Care Team Providers Care Steam Turbine Operator Name Role Phone Yamileth Taveras MD Primary Care Prov ider Allergies No known active allergies Medications FREESTYLE LANCETS MISC USE THREE TIMES DAILY TO CHECK BLOOD SUGAR Active cholecalciferol (VITAMIN D-3) 50 mcg (2,000 unit) capsule Take 1 capsule (2,000 Units total) by mouth 1 (one) time each day. 024 Active aspirin 81 mg EC tablet Take 1 tablet (81 mg total) by mouth 1 (one) time each day. 023 Active mirtazapine (REMERON) 15 mg tablet Take 1 tablet (15 mg total) by mouth. Active lancets lancets To check sugars three times a day E11.9 024 Active donepeziL (ARICEPT) 10 mg tablet Take 1 tablet (10 mg total) by mouth at bedtime. at bedtime. 024 Active memantine (NAMENDA) 10 mg tablet Take 1 tablet (10 mg total) by mouth 2 (two) times a day. Active QUEtiapine (SEROquel) 25 mg tablet Take 1 tablet (25 mg total) by mouth 2 (two) times a day. 024 Active ramelteon (ROZEREM) 8 mg tablet Take 1 tablet (8 mg total) by mouth at bedtime. Active dulaglutide (Trulicity) 4.5 mg/0.5 mL pen injector injection Inject 0.5 mL (4.5 mg total) under the skin 1 (one) time per week. 2 mL 3 024 Active OneTouch Ultra2 Meter miscIndications :Type 2 diabetes mellitus with nephropathy ([facility] V24, [facility] V28) USE TO CHECK BLOOD SUGAR THREE TIMES DAILY DIRECTED 1 each 025 Active atorvastatin (LIPITOR) 20 mg tablet TAKE 1 TABLET BY MOUTH DAILY 90 tablet 1 025 Active insulin syr/ndl U100 half bethel 0.3 mL 31 gauge x 5/16 syringeIndicati ons:Type 2 diabetes mellitus with nephropathy ([facility] V24, [facility] V28) Inject under the skin 4 (four) times a day. Use with Insulin 4 times daily as directed. 400 each 3 025 Active insulin glargine (Lantus U-100 Insulin) 100 unit/mL injectionIndica tions:Type 2 diabetes mellitus with nephropathy ([facility] V24, [facility] V28) Use 40 units at bedtime 15 mL 2 025 Active lisinopril-hydr oCHLOROthiazide (PRINZIDE,ZESTO RETIC) 20-12.5 mg per tablet Take 1 tablet by mouth 1 (one) time each day. 90 each 3 025 2025 Active glucose blood test stripIndication s:Type 2 diabetes mellitus with nephropathy ([facility] V24, [facility] V28) Use as instructedTo check sugars three times a day E11.9 300 each 3 025 Active NovoLOG U-100 Insulin aspart 100 unit/mL injection INJECT INTO THE SKIN THREE TIMES DAILY BEFORE MEALS PER <70: 0 units, 71-100: 4 units, 101-150: 6 units, 151-200: 8 units, 201-250: 10 units, 251-300: 12 units, 301-350: 13 units, 351-400: 14 units, >400: call me 45 mL 1 025 Active denosumab (Prolia) 60 mg/mL syringe syringeIndicati ons:Osteoporosi s, unspecified osteoporosis type, unspecified pathological fracture presence Inject 1 mL (60 mg total) under the skin 1 (one) time for 1 dose. 1 mL Active insulin syringe-needle U-100 1 mL 31 gauge x 5/16 syringe Inject 1 each under the skin 4 (four) times a day. Use with Insulin 4 times daily as instructed. 400 each 1 Active doxycycline hyclate (VIBRA-TABS) 100 mg tablet Take 1 tablet (100 mg total) by mouth 2 (two) times a day for 7 days. Take with a full glass of water and do not lie down for at least 30 minutes after. 14 tablet 025 2024 Active colchicine (COLCRYS) 0.6 mg tablet Take 1 tablet (0.6 mg total) by mouth as directed. Take 1 tablet twice a day for 3 days, then begin 1 tablet a day for the next 7 days. Not take the medication for more than 10 days straight. 13 tablet 025 2024 Discontinued colchicine (COLCRYS) 0.6 mg tablet Take 1 tablet (0.6 mg total) by mouth as directed. Take 1 tablet twice a day for 3 days, then begin 1 tablet a day for the next 7 days. Not take the medication for more than 10 days straight. 13 tablet 025 2024 Discontinued(T herapy completed) Active Problems Problem Noted Date Diagnosed Date [...] tingling, numbness in feet Assessment & Plan (07/17/2025 2:31 PM EST): Poor control of diabetes. Last A1c: 8.6. Continue Trulicity to 4.5 mg every week, Glargine 40 units and Novolog for correction, recently adjusted by endo. Patient will continue with yearly Podiatric and Ophthomologic evaluations. Will continue Angiotensin Converting Enzyme Inhibitor for renal protection. She is encouraged to follow a low-carb diet. Assessment & Plan (12/28/2024 12:33 PM EDT): [...] August. HTN (hypertension) 03/07/2013 Assessment & Plan (07/17/2025 2:31 PM EST): The patient's antihypertensive regimen is based on their underlying medical issues. At the time of this visit, the blood pressure is not well controlled, however patient did not take her medication today. Currently on hydrochlorothiazide/lisinopril. The patient is instructed to follow a low sodium diet and to follow up in one month. Assessment & Plan (12/28/2024 12:33 PM EDT): [...] Diabetes 03/07/2013 Hyperlipidemia 03/07/2013 Assessment & Plan (07/17/2025 12:44 PM EST): Given the patients cardiac risk profile, the patient requires an LDL cholesterol of less than 70. I have instructed the patient on the principles of a low cholesterol diet and the importance of regular exercise. Continue atorvastatin 20 mg. Assessment & Plan (12/28/2024 12:33 PM EDT): [...] Encounters Date Type Department Care Team Description 08/08/2025 Results Follow-Up Adult [address], [place] [phone] Marleny Figueredo PA 08/07/2025 2:00 PM EST Office Visit Adult Medicine [address] [phone] Marleny Figueredo PA Acute pain of right knee (Primary Dx); Acute gout of right knee, unspecified cause; Ingrowing toenail of right foot; Productive cough; Type 2 diabetes mellitus with stage 4 chronic kidney disease, with long-term current use of insulin (CMS/HCC V24, CMS/HCC V28); Diabetic polyneuropathy associated with type 2 diabetes mellitus (CMS/HCC V24, CMS/HCC V28); Type 2 diabetes mellitus with diabetic autonomic neuropathy, with long-term current use of insulin (CMS/HCC V24, CMS/HCC V28) 07/25/2025 Telephone Adult Medicine [address] [phone] Yamileth Vera MD 07/21/2025 1:17 PM EST - 07/21/2025 3:35 PM EST Emergency [facility] Emergency [address] [place] [phone] Acute pain of right knee (Primary Dx); Gouty arthritis of right knee Discharge Disposition: Home or Self Care 07/17/2025 12:30 PM EST Office Visit Adult Medicine [address] [phone] Yamileth Vera MD Type 2 diabetes mellitus with nephropathy ([facility]/HCC V24, [facility] V28) (Primary Dx); Primary hypertension; Mixed hyperlipidemia; Screening for depression; Encounter for screening involving social determinants of health (SDoH); Need for prophylactic vaccination and inoculation against influenza 07/10/2025 10:45 AM EST Office Visit Nephrology - [address] [phone] José Miguel Kent MD Stage 3 chronic kidney disease, unspecified whether stage 3a or 3b CKD (CMS/HCC V24, CMS/HCC V28) (Primary Dx); Hypertension, unspecified type; Type 2 diabetes mellitus with nephropathy ([facility] V24, [facility] V28) 07/06/2025 Telephone Adult Medicine [address] [phone] Yamileth Vera MD 07/05/2025 Telephone Endocrinology [address] [phone] Nita Davalos PA 06/26/[address] [phone] Jacklyn Pierson RN 06/25/2025 1:00 PM EDT Office Visit [address] [phone] Nita Davalos PA Type 2 diabetes mellitus with nephropathy ([facility] V24, [facility] V28) (Primary Dx); Primary hypertension; Stage 3a chronic kidney disease ([facility] V24, [facility] V28); Osteoporosis, unspecified osteoporosis type, unspecified pathological fracture presence from Last 3 Months Immunizations Immunization Administration Dates Next Due Influenza Quadravalent, MDCK , 0.5ml, preservative free (Flucelvax) 6mo and older 08/18/2018 Influenza trivalent, 0.5mL ( Fluad) 65yo and older 07/17/2025 Influenza trivalent, 0.5mL ( Fluzone High-dose) 65yo [...] History Surgery Date Site/Laterality Comments APPENDECTOMY PROCEDURE: VA APPENDECTOMY HERNIA REPAIR PROCEDURE: HISTORICAL HERNIA REPAIR/ING [...] mellitus) type II controlled with renal manifestation (CMS/HCC V24, CMS/HCC V28) 03/07/2013 DX:DM (diabetes mellitus) t ype II controlled with renal manifestation ([facility]); COMMENT: 07/11/13: Regadenoson nuclear stress test with anginal symptoms. The stress EKG does exhibit ST changes suggestive of ischemia, with a normotensive response to the infusion. 1. Regadenoson nuclear stress test without evidence of ischemia or infarction. 2. 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 (CMS/HCC V24, CMS/HCC V28) 11/28/2013 DX:Controlled ty pe 2 diabetes with neuropathy ([facility]); COMMENT: Pain, tingling, numbness in feet CKD (chronic kidney disease) stage 3, GFR 30-59 ml/min ([facility] V24, [facility] V28) 03/21/2013 DX:CKD (chronic kidney disea se) stage 3, GFR 30-59 ml/min ([facility]); COMMENT: Dr dunbar Chronic back pain 03/07/2013 DX:Chronic hortensia k pain; COMMENT: Chronic t12 compression fracture on ct abdomen Type 2 diabetes mellitus wit h cataract ([facility] V24, [facility] V28) 07/23/2015 DX:Type 2 diabetes mellitus with cataract ([facility]); COMMENT: NS/ Cataracts bilateral Diabetic neuropathy ([facility] V24, [facility] V28) 08/18/2015 DX:Diabetic neuropathy ([facility]) DM type 2, uncontrolled, wit h renal [...] care for your loved ones. For example, children's librarian or elderly care for an older adult? [...] on file Sexual Orientation Not on file Last Filed Vital Signs Vital Sign Reading [...] Mass Index 23.41 08/07/2025 1:44 PM EST Plan of Treatment Upcoming Encounters Date Type Department Care Team (Late st Contact Info) Description 09/11/2025 12:30 PM EST Office Visit Adult Medicine [facility] [address], [place] [phone] Lakisha Corbett PA [address] [place], [place] 09/18/2025 10:30 AM EST Appointment [facility] Bone Density [address] [place] [phone] 09/26/2025 12:00 PM EST Office Visit Endocrinology [address] [phone] Nita Davalos PA [address], [place] 01/08/2026 11:30 AM EDT [facility] [address] [place] [address] José Miguel Kent MD [address] [phone] Health Maintenance Due Date Last Done Comments Diabetes: Annual Foot Exam 1952 Zoster Vaccines (1 of 2) 1961 RSV Immunization Adult Patients (1 - 1-dose 75+ series) 2017 Diabetes: Annual Urine Albumin-Creatinine Ratio (uACR) 01/15/2024 01/14/2023 DTaP,Tdap,and Td Vaccines (2 - Td or Tdap) 11/06/2024 11/06/2014 Diabetes: Annual Retina Eye Exam 02/23/2025 02/24/2024 Diabetes: Blood Sugar Control Test (HGBA1C) 06/30/2025 12/28/2024, 05/04/2024, 05/04/2024, Additional history exists Medicare Annual Wellness Visit 07/13/2025 07/13/2024 Falls Risk Assessment 07/17/2026 07/17/2025, 024 Social Influencers of Health Screening 07/17/2026 07/17/2025, 07/13/2024 Diabetes: Annual GFR (Glomerular Filtration Rate) 07/21/2026 07/21/2025, 12/28/2024, 05/04/2024, Additional history exists Hypertension/CHF/CAD Annual BMP Blood Test 07/21/2026 07/21/2025, 12/28/2024, 05/04/2024, Additional history exists Cholesterol Screening (Lipid Panel) 07/14/2028 07/14/2023 Osteoporosis Screening (Bone Density Screening) 09/17/2032 09/17/2022, 11/02/2019 Pneumococcal Vaccine: 50+ Years Completed 09/17/2015, 04/26/2014 Depression Screening Completed 07/17/2025 Influenza Vaccine Completed 07/17/2025, , 06/10/2023, Additional history exists COVID-19 Vaccine Discontinued HIB [...] disease, with long-term current use of insulin ([facility] V24, [facility] V28) Diabetic polyneuropathy associated with type 2 diabetes mellitus ([facility] V24, [facility] V28) Type 2 diabetes mellitus with diabetic autonomic neuropathy, with long-term current use of insulin ([facility] V24, [facility] V28) BORRELIA BURGDORFERI ANTIBODY STAT 07/21/2025 2:05 PM EST CBC WITH AUTO DIFFERENTIAL STAT 07/21/2025 2:05 PM EST COMPREHENSIVE METABOLIC PANEL STAT 07/21/2025 2:05 PM EST URIC ACID STAT 07/21/2025 2:05 PM EST CBC AND DIFFERENTIAL STAT 07/21/2025 2:05 PM EST XR KNEE 4+ VIEWS RIGHT STAT 07/21/2025 1:55 PM EST POC GLUCOSE Routine 06/25/2025 1:07 PM EDT Type 2 diabetes mellitus with nephropathy ([facility] V24, [facility] V28) HEMOGLOBIN A1C Routine 12/28/2024 1:18 PM EDT Type 2 diabetes mellitus with nephropathy ([facility] V24, [facility] V28) Primary hypertension Mixed hyperlipidemia DIABETES EYE EXAM Routine 02/24/2024 LIPID PANEL Routine 07/14/2023 URINE ALBUMIN CREATININE RATIO Routine 01/14/2023 DXA BONE DENSITY STUDY 1+ SITS AXIAL SKEL Routine 09/17/2022 11:31 AM EST Encounter for screening for osteoporosis from Last 3 Months or Most Recently Relevant to Health Maintenance Results * Respiratory virus panel molecular study (08/07/2025 3:10 PM EST) Adenovirus Detection by PCR Not Detected Not Detected LAB MICROBIOLOGY METHOD 08/07/2025 5:27 PM [facility] Influenza A PCR Not Detected Not Detected LAB MICROBIOLOGY METHOD 08/07/2025 5:27 PM [facility] Influenza B PCR Not Detected Not Detected LAB MICROBIOLOGY METHOD 08/07/2025 5:27 PM [facility] Coronavirus 229E Not Detected Not Detected LAB MICROBIOLOGY METHOD 08/07/2025 5:27 PM [facility] Coronavirus HKU1 Not Detected Not Detected LAB MICROBIOLOGY METHOD 08/07/2025 5:27 PM [facility] Coronavirus OC43 Not Detected Not Detected LAB MICROBIOLOGY METHOD 08/07/2025 5:27 PM [facility] Coronavirus NL63 Not Detected Not Detected LAB MICROBIOLOGY METHOD 08/07/2025 5:27 PM [facility] Parainfluenza Virus 1 Not Detected Not Detected LAB MICROBIOLOGY METHOD 08/07/2025 5:27 PM [facility] Parainfluenza Virus 2 Not Detected Not Detected LAB MICROBIOLOGY METHOD 08/07/2025 5:27 PM [facility] Parainfluenza Virus 3 Not Detected Not Detected LAB MICROBIOLOGY METHOD 08/07/2025 5:27 PM [facility] Parainfluenza Virus 4 Not Detected Not Detected LAB MICROBIOLOGY METHOD 08/07/2025 5:27 PM [facility] RSV PCR Not Detected Not Detected LAB MICROBIOLOGY METHOD 08/07/2025 5:27 PM [facility] Human Metapneumovirus A and B Not Detected Not Detected LAB MICROBIOLOGY METHOD 08/07/2025 5:27 PM [facility] Rhinovirus/Entero virus Not Detected Not Detected LAB MICROBIOLOGY METHOD 08/07/2025 5:27 PM EST [facility] Bordetella pertussis Not Detected Not Detected LAB MICROBIOLOGY METHOD 08/07/2025 5:27 PM EST [facility] Bordetella parapertussis Not Detected Not Detected LAB MICROBIOLOGY METHOD 08/07/2025 5:27 PM EST [facility] Mycoplasma pneumo by PCR Not Detected Not Detected LAB MICROBIOLOGY METHOD 08/07/2025 5:27 PM EST [facility] Chlamydia pneumoniae Not Detected Not Detected LAB MICROBIOLOGY METHOD 08/07/2025 5:27 PM EST [facility] SARS COV-2 Not Detected Not Detected LAB MICROBIOLOGY METHOD 08/07/2025 5:27 PM [facility] Swab Both anterior nares / Unknown Non-blood Collection / Unknown 08/07/2025 3:10 PM EST 08/07/2025 3:10 PM EST [facility] - 08/07/2025 5:27 PM EST Testing was performed using the [employer] Respiratory Pathogen PCR Assay. All results must [...] that are below the limit of detection. Marleny KINNEY LAB MICROBIOLOGY - GENERAL ORDER ABELARDO Final Result [facility] [address] [place] [address], * (ABNORMAL) CBC auto differential (07/21/2025 2:05 PM EST) [facility] WBC 8.2 4.8 - 10.8 K/mcL LAB HEMETOLOGY METHOD 07/21/2025 2:21 PM EST [facility] RBC 3.60(L) 3.80 - 4.80 M/mcL LAB HEMETOLOGY METHOD 07/21/2025 2:21 PM [facility] Hemoglobin 11.5 11.5 - 16.0 g/dL LAB HEMETOLOGY METHOD 07/21/2025 2:21 PM [facility] Hematocrit 34.6(L) 35.0 - 47.0 % LAB HEMETOLOGY METHOD 07/21/2025 2:21 PM [facility] MCV 95.1 79.0 - 98.0 FL LAB HEMETOLOGY METHOD 07/21/2025 2:21 PM [facility] MCH 31.6 27.0 - 32.0 pcg LAB HEMETOLOGY METHOD 07/21/2025 2:21 PM [facility] MCHC 33.2 32.0 - 37.0 g/dL LAB HEMETOLOGY METHOD 07/21/2025 2:21 PM [facility] RDW 13.6 11.0 - 15.0 % LAB HEMETOLOGY METHOD 07/21/2025 2:21 PM [facility] Platelets 174 130 - 400 K/mcL LAB HEMETOLOGY METHOD 07/21/2025 2:21 PM [facility] MPV 10.6 7.0 - 11.0 FL LAB HEMETOLOGY METHOD 07/21/2025 2:21 PM [facility] NRBC 0.0 <1.0 % LAB HEMETOLOGY METHOD 07/21/2025 2:21 PM [facility] NRBC Absolute 0.00 <0.10 K/mcL LAB HEMETOLOGY METHOD 07/21/2025 2:21 PM [facility] Neutrophils Relative 71.3 % LAB HEMETOLOGY METHOD 07/21/2025 2:21 PM [facility] Lymphocytes Relative 17.8 % LAB HEMETOLOGY METHOD 07/21/2025 2:21 PM EST [facility] Monocytes Relative 7.2 % LAB HEMETOLOGY METHOD 07/21/2025 2:21 PM [facility] Eosinophils Relative 3.2 % LAB HEMETOLOGY METHOD 07/21/2025 2:21 PM [facility] Basophils Relative 0.1 % LAB HEMETOLOGY METHOD 07/21/2025 2:21 PM [facility] Immature Granulocytes Relative 0.4 % LAB HEMETOLOGY METHOD 07/21/2025 2:21 PM [facility] Neutrophils Absolute 5.86 1.50 - 7.00 K/mcL LAB HEMETOLOGY METHOD 07/21/2025 2:21 PM [facility] Lymphocytes Absolute 1.46 1.00 - 5.00 K/mcL LAB HEMETOLOGY METHOD 07/21/2025 2:21 PM [facility] Monocytes Absolute 0.59 0.20 - 1.00 K/mcL LAB HEMETOLOGY METHOD 07/21/2025 2:21 PM [facility] Eosinophils Absolute 0.26 0.00 - 0.50 K/mcL LAB HEMETOLOGY METHOD 07/21/2025 2:21 PM [facility] Basophils Absolute 0.01 0.00 - 0.20 K/mcL LAB HEMETOLOGY METHOD 07/21/2025 2:21 PM [facility] Immature Granulocytes Absolute 0.03 0.00 - 0.03 K/mcL LAB HEMETOLOGY METHOD 07/21/2025 2:21 PM [facility] Blood Venous blood specimen / Unknown Venipuncture / Unknown 07/21/2025 2:05 PM EST 07/21/2025 2:16 PM EST us Lola Carrillo NP LAB BLOOD ORDERABLES Patricia l Result [facility] [address] [place] [address], * Borrelia burgdorferi antibody (07/21/2025 2:05 PM EST) [facility] Lyme Ab Negative Negative LAB CHEMISTRY METHOD 07/22/2025 11:12 AM EST [facility] Comment: No laboratory evidence of infection with B. burgdorferi (Lyme disease). Negative results may occur in patients recently infected (<=14 days) with B. burgdorferi. If recent infection is suspected, repeat testing on a new sample collected in 7- 14 days is recommended. Blood Venous blood specimen / Unknown Venipuncture / Unknown 07/21/2025 2:05 PM EST 07/21/2025 2:16 PM EST Lola Carrillo NP LAB BLOOD ORDERABLES Patricia l Result Performing Organization Address City/[facility]/ZIP Co de Phone Number [facility] [address] [place] [address], [place] [phone] * Uric acid (07/21/2025 2:05 PM EST) [facility] Uric Acid 7.4 3.1 - 7.8 mg/dL 07/21/2025 2:44 PM EST [facility] Blood Venous blood specimen / Unknown Venipuncture / Unknown 07/21/2025 2:05 PM EST 07/21/2025 2:16 PM EST Lola Carrillo DELIVERY MANAGER LAB BLOOD ORDERABLES Patricia l Result [facility] [address] [place] [address], [place] [phone] * (ABNORMAL) Comprehensive metabolic panel (07/21/2025 2:05 PM EST) [facility] Sodium 139 133 - 145 mmol/L 07/21/2025 2:44 PM [facility] Potassium 3.6 3.5 - 5.5 mmol/L 07/21/2025 2:44 PM [facility] Chloride 101 96 - 110 mmol/L 07/21/2025 2:44 PM [facility] CO2 30 21 - 32 mmol/L 07/21/2025 2:44 PM [facility] Anion Gap 8 3 - 11 07/21/2025 2:44 PM [facility] Glucose 202(H) 70 - 100 mg/dL 07/21/2025 2:44 PM [facility] BUN 23 5 - 25 mg/dL 07/21/2025 2:44 PM [facility] Creatinine 1.87(H) 0.50 - 1.10 mg/dL 07/21/2025 2:44 PM [facility] eGFR 26(L) >=60 mL/min/1. 73m2 07/21/2025 2:44 PM [facility] Comment:Calculation based on the Chronic Kidney Disease Epidemiology Collaboration (CKD-EPI) equation refit without adjustment for race. BUN/Creatinine Ratio 12.3 07/21/2025 2:44 PM [facility] Calcium 8.9 8.5 - 10.5 mg/dL 07/21/2025 2:44 PM [facility] AST (SGOT) 15 10 - 42 unit/L 07/21/2025 2:44 PM [facility] ALT (SGPT) 11 10 - 60 unit/L 07/21/2025 2:44 PM [facility] Alkaline Phosphatase 91 42 - 121 unit/L 07/21/2025 2:44 PM [facility] Total Protein 6.7 6.0 - 8.0 g/dL 07/21/2025 2:44 PM [facility] Albumin 4.0 3.2 - 5.0 g/dL 07/21/2025 2:44 PM EST [facility] Total Bilirubin 0.6 0.0 - 1.4 mg/dL 07/21/2025 2:44 PM EST [facility] Blood Venous blood specimen / Unknown Venipuncture / Unknown 07/21/2025 2:05 PM EST 07/21/2025 2:16 PM EST us Lola Carrillo DELIVERY MANAGER LAB BLOOD ORDERABLES Patricia l Result [facility] ([facility] [address] [place] [address], [place] [phone] * XR Knee 4+ Views Right (07/21/2025 1:55 PM EST) Anatomical Region Laterality Modality Lower Extremities, Knee Right Radiogra phic Imaging 07/21/2025 2:04 PM EST Impressions 07/21/2025 2:05 PM EST Small joint effusion. Findings of chondrocalcinosis. No acute findings. -------- FINAL REPORT -------- Dictated By: Brock Buck Dictated Date: 07/21/2025 14:04 ET Assigned Physician: Brock Buck Reviewed and Electronically Signed By: Brock Buck Signed Date: 07/21/2025 14:05 ET Workstation ID: [id number] Transcribed By: Self Edit Transcribed Date: 07/21/2025 14:04 ET Narrative 07/21/2025 2:05 PM EST PROCEDURE: Radiographs of the right knee. HISTORY: pain. COMPARISON: None. FINDINGS: 4 views of the left knee. Bones appear diffusely demineralized. Prominent meniscal calcifications consistent with chondrocalcinosis. A calcification adjacent to the medial femoral condyle is suggestive of sequela of a prior medial collateral ligament injury. There is a small suprapatellar joint effusion. No focal bony lesion or fracture. Procedure Note Brock Buck MD - 07/21/2025 PROCEDURE: Radiographs of the right knee. HISTORY: pain. COMPARISON: None. FINDINGS: 4 views of the left knee. Bones appear diffusely demineralized. Prominent meniscal calcificationsconsistent with chondrocalcinosis. A calcification adjacent to the medialfemoral condyle is suggestive of sequela of a prior medial collateralligament injury. There is a small suprapatellar joint effusion. No focalbony lesion or fracture. IMPRESSION: Small joint effusion. Findings of chondrocalcinosis. No acutefindings. -------- FINAL REPORT -------- Dictated By: Brock Buck Dictated Date: 07/21/2025 14:04 ET Assigned Physician: Brock Buck Reviewed and Electronically Signed By: Brock Buck Signed Date: 07/21/2025 14:05 ET Workstation ID: [id number] Transcribed By: Self Edit Transcribed Date: 07/21/2025 14:04 ET Lola Carrillo DELIVERY MANAGER IMG XR PROCEDURES Final R esult * POC glucose manually resulted (06/25/2025 1:07 PM EDT) Pathologist [facility] Glucose POC 154 mg/dL Blood Capillary blood specimen / Unknown 06/25/2025 1:07 PM EDT Nita KINNEY POINT OF CARE TEST ENTER/EDIT OR DERABLES Final Result * (ABNORMAL) Hemoglobin A1c (12/28/2024 1:18 PM EDT) Hemoglobin A1C 8.6(H) <6.5 % LAB CHEMISTRY METHOD 12/28/2024 10:17 PM EDT [facility] Mean Bld Glu Estim. 200 mg/dL LAB CHEMISTRY METHOD 12/28/2024 10:17 PM EDT [facility] Blood Venous blood specimen / Unknown Venipuncture / Unknown 12/28/2024 1:18 PM EDT 12/28/2024 1:18 PM EDT Yamileth Taveras MD LAB BLOOD ORDERABL ES Final Result [facility] ([facility]) [facility] [address] [place] [address], [place] [phone] * Diabetes Eye Exam (02/24/2024) Pathologist [facility] Diabetes: Annual Retina Eye Exam ABSTRACTED Historical Provider MD HEALTH MAINTENANCE Final Result * (ABNORMAL) Lipid panel (07/14/2023) [facility] LDL/HDL Ratio 4 0 - 4 Triglycerides 129 0 - 150 mg/dL Cholesterol 237(A) 0 - 200 mg/dL HDL 57 >=40 mg/dL LDL Cholesterol 155(A) 0 - 100 mg/dL Blood Venous blood specimen / Unknown Historical Provider LAB BLOOD ORDERABLES Patricia l Result * Urine Albumin Creatinine Ratio (01/14/2023) [facility] Urine Albumin Creatinine Ratio ABSTRACTED Historical Provider HEALTH MAINTENANCE Final Result [...] to have osteoporosis by WHO criteria. [facility] Department of Internal Medicine [...] alternative screening schedule based on chase Fernandez., [facility] September 17, 2011 for patients with osteopenia [...] to have osteoporosis by WHO criteria. [facility] Department of Internal Medicine [...] alternative screening schedule based on chase Fernandez., NEJJanuary 2011 for patients with osteopenia (based on [...] Most Recently Relevant to Health Maintenance Insurance [facility] RETIREMENT OPT[employer] Member Subscriber Plan / Payer (Ef fective 2025-Present) Name:Danisha Guerrero Relation to Subscriber:Self Name:Danisha Guerrero Payer ID:[id number] Group ID:[id number] Type:Not on file Address: [facility] [address] [phone] Care Teams Steam Turbine Operator Relationship Specialty Start Date End Date Yamileth Taveras MD [address] [place] [phone] PCP - General Internal Medicine 03/05/22
--- OUTSIDE RECORDS SUMMARY | 2025-08-09 22:29 | XMS_ITS | Encounter Summary ---
Author Organization [facility] Address [address] [place] [address] Care Team Providers Care Microbiology Lab Assistant Name Role Phone Yamileth Taveras MD Primary Care Prov ider Reason for Visit * Reason Onset Date Comments Labs Only 07/05/2025 Encounter Details Date Type Department Care Team ([facility] st Contact Info) Description 07/05/2025 Telephone Endocrinology - [place] [address] [place] [phone] Nita Davalos PA [address] [place] [address] Social History Tobacco Use Types Packs/Day Years Used Date Smoking Tobacco: Former Smokeless Tobacco: Never Alcohol Use Standard Drinks/Week Comments No 0 [...] your loved ones. For example, child care team lead or elderly care for an older adult? [...] on file documented as of this encounter Progress Notes * Lottie Linares MA - 07/12/2025 4:49 PM EST I tried calling pt to informed her that labs have been ordered but phone went to . And mail box is full. * NIRMAL Juan - 07/09/2025 4:03 PM EST Labs are already ordered. * Heidi Gusman - 07/05/2025 1:59 PM EST Endocrine Call Primary endocrine provider: Nita Davalos PA-C Is the endocrine provider in the office toady?: yes Who is calling? Carlos from [facility] . If not the patient or parent/guardian please check for authorization to share/verbal release. Why is the person calling? Orders (labs or imaging). Patient wanting labs/images ordered. Please send directly to endocrine provider. Which labs/images: Carlos from [facility] calling along with pt to request calcium labs. Pt scheduled for prolia injection 08/02 at 11 a.m. at the infusion center in [facility]. Pt would like a call once labs are placed. . documented in this encounter Plan of Treatment Upcoming Encounters Date Type Department Care Team (Late st Contact Info) Description 09/11/2025 12:30 PM EST Office Visit Adult Medicine [address] [phone] Lakisha Corbett PA [address] [place] [address] 09/18/2025 10:30 AM EST Appointment [facility]ensity [address] [place] [phone] 09/26/2025 12:00 PM EST Office Visit Endocrinology [address] [phone] Nita Davalos PA [address] [place] [address] 01/08/2026 11:30 AM EDT Office Visit [facility] - [facility] [address] [facility] [place] [phone] José Miguel Kent MD [address] [phone] documented as of this encounter Visit Diagnoses Not on filedocumented in this encounter Care Teams Microbiology Lab Assistant Relationship Specialty Start Date End Date Yamileth Taveras MD [address] [place] [address] PCP - General Internal Medicine 03/05/22 documented as of this encounter
--- OUTSIDE RECORDS SUMMARY | 2025-08-09 22:29 | XMS_ITS | Encounter Summary ---
Author Organization [facility] Address [address] [place] [address] Care Team Providers Care Electric Motor Tester Assembler Name Role Phone Yamileth Taveras MD Primary Care Prov ider Encounter Details Date Type Department Care Team ([facility] st Contact Info) Description 08/08/2025 Results Follow-Up Adult Medicine [facility] [address] [place], [place] [phone] Marleny Figueredo PA [address] [place], [place] Social History Tobacco Use Types Packs/Day Years [...] care for your loved ones. For example, childhood teacher or elderly care for an older adult? [...] on file documented as of this encounter Plan of Treatment Upcoming Encounters Date Type Department Care Team (Late st Contact Info) Description 09/11/2025 12:30 PM EST Office Visit Adult Medicine [facility] [address] [place], [place] [phone] Lakisha Corbett PA [address] [place], [place] 09/18/2025 10:30 AM EST Appointment [facility] Density [address] [place] [phone] 09/26/2025 12:00 PM EST Office Visit Endocrinology - [place] [address] [place] [phone] Nita Davalos PA [address] [place] [address] 01/08/2026 11:30 AM EDT Office Visit Nephrology - [facility] [address] [place] [phone] José Miguel Kent MD [address] [phone] documented as of this encounter Visit Diagnoses Not on filedocumented in this encounter Additional Health Concerns Assessment Noted Time PHQ-9 Depression Total Score: 1 07/17/20 25 12:37 PM EST A fall risk assessment has been complete d for the patient 07/17/2025 12:37 PM EST documented as of this encounter Care Teams Electric Motor Tester Assembler Relationship Specialty Start Date End Date Yamileth Taveras MD [address] [place] [phone] PCP - General Internal Medicine 03/05/22 documented as of this encounter
--- OUTSIDE RECORDS SUMMARY | 2025-08-09 22:29 | XMS_ITS | Data Portability ---
Author Organization [facility] Address [address] [place] [phone] Care Team Providers Care Supervisor Brake Repair Name Role Phone HIM CCA OTHER Assessment Encounter Date Assessment Date Assessment LastModified by Organization Details LastModified Time 10/20/2024 10/20/2024 I have reviewed and agree with the assessment and plan as documented by the inside sales consultant. I provided real-time medical direction for this encounter and was immediately available to provide additional phone-based assistance as needed. History as noted in EMR and by inside sales consultant. I would add / emphasize: Patient seen for chronic left knee pain for 1 year no acute changes in symptoms. AVSS afebrile and well-appearing . No trauma no other complaints. Per inside sales consultant no acute erythema crepitus or deformity to [...] Ag, QL IA, respiratory specimen [address], [phone] 3 17:11:23 rapid flu (A+B) [address], [phone] 3 17:11:45 Referral None recorded. Procedures None recorded. Surgeries None recorded. Imaging None recorded. Medication Orders benzonatate 100 mg capsule 2022 [id number] [address] [place], [place], [phone], 3 13:01:49 Patient TargetsNo targets recorded. Patient [...] t Available Vitals Date Recorded Oxygen saturation Body height Body temperature Respiratory rate Body weight Heart rate Systolic And Diastolic Provider Name and Address Organization Details Last Updated DateTime 5 98 % 162.56 cm 98.6 [degF] 18 /min 41746.8 g 88 /min 176/89 mm[Hg] Not Available [employer] 5 17:46:16 Date Recorded Oxygen saturation Heart rate Body temperature Respiratory rate Systolic And Diastolic Provider Name and Address Organization Details Last Updated DateTime 3 98 % 76 /min 98.9 [degF] 14 /min 112/76 mm[Hg] Not Available [employer] 3 13:00:16 Social History None recorded. Functional Status None recorded. Mental Status None recorded. Family History Nothing Reported. Medical History No medical history recorded. Gynecological HistoryNo gynecological history recorded. Obstetrics History GPAL:G 0 P 0 0 0 0 Past Encounters Encounter ID Performer Location Encounter Start Date Encounter Closed Date Diagnosis/Indication Diagnosis SNOMED-CT Code Diagnosis ICD10 Code Diagnosis IMO Codes Diagnosis Note [id number] Miller Galvez MD [facility] [address] [place] [phone] 08/19/2023 13:00:01 08/21/2023 17:05:46 Viral upper respiratory tract infection 315730611 J06.9 Flu/COVID negative. Vitals stable with baseline O2 sats. No strep symptoms. Continue supportive care. Discussed red flag signs for which to seek higher level of care. [id number] Mario Ceron MD [facility] [address] [place] [phone] 10/20/2024 17:46:13 10/21/2024 09:26:42 Pain of left knee joint 2879851330 37418 M25.562 Health Concerns Section Related Observation LastModified by Organization Detai ls LastModified Time None Recorded Concern Status LastModified by Organization Details LastModified Time None Recorded Advance Directives Directive None Recorded Payers Insurance Date Sequence Insurance Name Policy Number Policy Riddle Covered Member ID Riddle Member ID Guarantor Name 10/20/2024 1 [facility]INT [facility] - DOS ON OR AFTER 2022 - DUAL ELIGIBLE - SKILLED NURSING OPTIONS AND ONE CARE (MEDICARE REPLACEMENT/ADV ANTAGE - HMO) Danisha Guerrero [id number] Danisha Guerrero Notes Date Note Type Note Provider Name and Address Organization Details Recorded Time 08/19/2023 text/html ROS as noted in the HPI HPI: er's daughter calling [facility], states member has cough, fatigue, and chills. Onset of sx's yesterday. Member is requesting home visit for COVID testing. ................... ................... ................... ................... ................... ................... ................... ........ [facility] Nurse Triage Notes (Latha Eckert): Comments: [facility] RN DID NOT NEED FURTHER INFO ................... ................... ................... ................... ................... ................... ................... ........ 911 Telecommunicator Note From Joe Desir: Encountered patient conscious, [...] flu swab performed, both negative as noted. [facility] contacted, advised of test results. [facility] to write prescription to patient s pharmacy of choice. Red flags discussed with patient family. Both parties advised to reach out for further medical attention should patient become further symptomatic. Skin warm, dry and appropriate color for ethnicity. Head and neck, free of trauma and edema. JVD. Breath sounds present clear and equal in all pichardo. Patient denies any difficulty breathing at this time or upon exertion. Abdomen soft, nontender nondistended. Extremity free of trauma and edema. ................... ................... ................... ................... ................... ................... ................... ........ Disposition: Fulfilled Miller Galvez MD [address] [place] [address],[address], [place], [phone], [place] 08/19/2023 16:18:13 10/20/2024 text/html [facility] Nurse Triage Notes (Zenobia Stinson - NOAH): [...] (e.g., Alzheimer's Disease) PMH Reviewed at 10/20/2024 10:55 Allergies Reviewed at 10/20/2024 10:55 Comments: Patient c/o LLE pain. Pain started [...] ................... ................... ................... ................... ................... ................... ........ 911 Telecommunicator Note From Scot Proctor: Dispatched to the above address for a 84 y/f with a cc of pain to the LLE. Proper ppe was worn throughout the call. Upon arrival: Pt AOx3 sitting in a fowlers position in the living room sofa. Pt family was on scene to help translate for the pt (Monegasque speaking only). Pt stated that she was [...] to headache/sob/dizzin ess/falls/flu like symptoms/fever//tadeo rrhea/nausea/vomiti ng. [facility]: notified the pt to take tylenol, and pt was told to call 911/pcp if anything changes. Pt stated that she understood. Red flag were explained to the pt. Crew cleared from call. All times approximate. ................... ................... ................... ................... ................... ................... ................... ........ [facility] Consulted: Mario Ceron ................... ................... ................... ................... ................... ................... ................... ........ Disposition: Fulfilled Mario Ceron MD [address] [facility],[address], [place], [phone], [employer] 10/21/2024 08:56:53 OBGyn Episode No OBEpisode recorded.
== END 2025-08-09 16:11 | disposition home or self-care (01) ==
LOC: HO.HSMS 14:55
PROVIDERS: PCP Internal Medicine; Visit Provider Nurse Practitioner Family
DX: F03.B2 Unspecified dementia, moderate, with psychotic disturbance (principal); R44.3 Hallucinations, unspecified
CPT/HCPCS: 99213